=== PATIENT | male | born 1995 | race Caucasian/White ===

== ENCOUNTER 2022-03-10 09:29 | Emergency (ER) | payer OTHER, SELFPAY ==
[2022-03-10 09:38] VITALS: BP 103/50; BP 144/94; PULSE 57; PULSE 74; RESP 14; TEMP 36.8; O2SAT 100; O2SAT 96; BMI 23.6
--- NOTE | 2022-03-10 10:19 | ED_ITS ---
HPI - General Adult General Chief complaint: General Medical Stated complaint: DIFF AMB D/T B[facility]OP LEG PAIN PER EMS Time Seen by Provider: 03/10/22 09:44 Source: patient Mode of arrival: ambulatory History of Present Illness HPI narrative: 26-year-old male with a past medical history of substance abuse presenting to the ED via EMS complaining of bilateral foot pain and swelling for unknown amount of time. Patient states he is currently homeless and does not have any shoes, called EMS as could not walk anymore secondary to pain. Reports intermittent numbness/tingling. Admits to using heroin last night, denies any drug or ETOH use today. Denies injecting in his feet. Denies fever, direct injury/trauma or fall. Denies SI/HI Onset (ago): unknown Related Data Previous Rx's Medication Instructions Recorded cephalexin 500 mg capsule 500 mg PO QID 7 days #28 caps 03/10/22 Allergies Allergy/AdvReac Type Severity Reaction Status Date / Time No Known Allergies Allergy Verified 03/10/22 09:58 Review of Systems Review of Systems: Constitutional: No Fever, No Chills ENT/Mouth: No Ear Pain, No Nasal Congestion, No sore throat, No Rhinorrhea, No Swallowing Difficulty Cardiovascular: No Chest Pain, No SOB Respiratory: No Cough, No Sputum Gastrointestinal: No Nausea, No Vomiting, No Diarrhea, No Constipation, No Abdominal pain Genitourinary: No Dysuria, No Urinary Frequency, No Flank Pain Musculoskeletal: + joint pain, No Myalgias, + Joint Swelling Skin: + Skin Lesions, No rash Neuro: No Weakness, + Numbness, + Paresthesias Yes all other systems are reviewed and are negative Constitutional: Constitutional: Reports as per [facility] Past Medical History Attestation statement: The following information was validated with the patient. Social History Social History Advance Directives: No Advance Directives Information Provided: Yes Physical Exam ED Vital Signs: Vital Signs - 24 hr 03/10/22 09:38 03/10/22 10:51 03/10/22 11:41 Temperature 98.3 F 97.5 F Pulse Rate 57 63 46 L Respiratory Rate 14 17 11 L Blood Pressure 103/50 L 111/60 Pulse Oximetry 100 99 100 Oxygen Delivery Method Room Air Room Air Room Air 03/10/22 13:58 Temperature 98.3 F Pulse Rate 59 Respiratory Rate 22 H Blood Pressure 106/70 Pulse Oximetry 94 Oxygen Delivery Method Room Air BMI result Body Mass Index 23.6 Const Other: Lethargic, appears under the influence, arousable with voice/touch General: no acute distress and poor hygiene; No acute distress Limitations: no limitations HENMT Head: Yes normal to inspection and Yes atraumatic Ears: hearing grossly normal bilaterally General nose exam: Normal external nose present Face and sinus: Yes normal facial exam Eyes General: appearance normal, both eyes and all related structures Pupils: Equal, round and reactive pupils present EOM: EOMs intact bilaterally Neck Neck: Yes normal visual inspection and Yes no meningeal signs Resp Effort & Inspection: normal respiratory effort and no respiratory distress Auscultation: clear to auscultation bilaterally Cardio Rate: regular rate Heart sounds: S1 normal heart sound present and S2 normal heart sound present GI Inspection: Yes normal to inspection Palpation (GI): Soft to palpation, nontender and no guarding Neuro General: tone normal, moves all extremities and no meningeal signs Cranial nerves: Yes Equal, round and reactive pupils present Gait exam (Neuro): Normal gait present Extrem Other: Bilateral feet with mild swelling, small abrasions/skin avulsions noted with mild surrounding erythema. Mild swelling/erythema noted to plantar aspect. No streaking, No fluctuance/induration or pointing. Neurovascularly intact. Sensation intact to light touch. Full range of motion intact Course Course Course Narrative: -labs unremarkable. Ethanol negative -1250-patient sleeping comfortably, easily arousable to voice. Has been tolera ting p.o. yudelka dottie -1440--patient is still very lethargic however arousable to voice -patient denies SI/HI. Has no interest in detox -tox screen positive for fentanyl/cocaine -1645-- Patient awake to voice, has been tolerating p.o., will discharge with Narcan to go. Plan to d/c with Keflex. Had no interest in homeless shelters/other resources Medical Decision Making [facility] Narrative Medical decision making narrative: 26-year-old male with a past medical history of substance abuse presenting to the ED via EMS complaining of bilateral foot pain and swelling for unknown amount of time. On exam vital signs stable, NAD, lethargic/appears under the influence. PE as above. Concern for overuse/pressure wounds due to homelessness vs early cellulitis. No evidence of abscess. Low suspicion for septic joint/arthritis Plan: Labs, drug screen, p.o. antibiotics Medical Records Medical records reviewed: Yes I reviewed the patient's medical records. Lab Data Lab results reviewed: Yes I reviewed the patient's lab results. Result diagrams: 03/10/22 10:48 03/10/22 10:48 Labs: Lab Results 03/10/22 03/10/22 03/10/22 Range/Units 10:48 10:48 11:59 WBC 6.0 (4.8-10.8) X10*3/uL RBC 3.93 L (4.60-5.80) X10*6/uL Hgb 10.9 L (14.0-18.0) g/dl Hct 32.2 L (42.0-52.0) % MCV 81.9 (80.0-98.0) fL MCH 27.7 (27.0-33.0) pg MCHC 33.9 (31.0-36.0) g/dl RDW 13.1 (11.0-16.0) % Plt Count 183 (160-400) X10*3/uL MPV 9.5 (9.4-12.4) fL Immature Gran % (Auto) 0.3 (0.0-0.4) % Neut % (Auto) 70.6 (45-73) % Lymph % (Auto) 17.9 L (20-40) % Nelson % (Auto) 9.2 (2-11) % Eos % (Auto) 1.7 (0-4) % Baso % (Auto) 0.3 (0-2) % Lymph # (Auto) 1.1 L (1.2-4.9) X10*3/uL Nelson # (Auto) 0.6 (0.1-1.2) X10*3/uL Eos # (Auto) 0.1 (0.0-0.4) X10*3/uL Baso # (Auto) 0.0 (0.0-0.2) X10*3/uL Abs Immat Gran (auto) 0.02 (0.00-0.03) X10*3/uL Absolute Neuts (auto) 4.2 (2.0-8.3) x10*3/uL Absolute Nucleated RBC 0.000 (0.0-0.012) X10*3/uL Nucleated RBC % (auto) 0.0 (0.0-0.2) /100WBC Sodium 139 (135-145) mmol/L Potassium 4.3 (3.3-5.1) mmol/L Chloride 102 (96-108) mmol/L Carbon Dioxide 29 (22-29) mmol/L Anion Gap 12 (12-20) BUN 12 (9-16) mg/dL Creatinine 0.84 (0.5-1.4) mg/dL Estim Creat Clear Calc 135.1 Estimated GFR > 60 Random Glucose 115 (60-115) mg/dL Calcium 8.7 (8.4-10.2) mg/dL B-Natriuretic Peptide < 10 (<100) pg/mL Urine Color Urine Appearance Urine pH (5.0-9.0) Ur Specific [place] (1.005-1.025) Urine Protein (Neg-Trace) mg/dL Urine Glucose (UA) (Negative) mg/dL Urine Ketones (Negative) mg/dL Urine Blood (Negative) Urine Nitrite (Negative) Ur Leukocyte Esterase (Negative) Urine Opiates Screen (Not Detect) Urine Fentanyl Screen (Not Detect) Ur Barbiturates Screen (Not Detect) Ur Phencyclidine Scrn (Not Detect) Ur Amphetamines Screen (Not Detect) U Benzodiazepines Scrn (Not Detect) Urine Cocaine Screen (Not Detect) U Marijuana (THC) Screen (Not Detect) Ethyl Alcohol < 10 mg/dL 03/10/22 03/10/22 Range/Units 16:10 16:19 WBC (4.8-10.8) X10*3/uL RBC (4.60-5.80) X10*6/uL Hgb (14.0-18.0) g/dl Hct (42.0-52.0) % MCV (80.0-98.0) fL MCH (27.0-33.0) pg MCHC (31.0-36.0) g/dl RDW (11.0-16.0) % Plt Count (160-400) X10*3/uL MPV (9.4-12.4) fL Immature Gran % (Auto) (0.0-0.4) % Neut % (Auto) (45-73) % Lymph % (Auto) (20-40) % Nelson % (Auto) (2-11) % Eos % (Auto) (0-4) % Baso % (Auto) (0-2) % Lymph # (Auto) (1.2-4.9) X10*3/uL Nelson # (Auto) (0.1-1.2) X10*3/uL Eos # (Auto) (0.0-0.4) X10*3/uL Baso # (Auto) (0.0-0.2) X10*3/uL Abs Immat Gran (auto) (0.00-0.03) X10*3/uL Absolute Neuts (auto) (2.0-8.3) x10*3/uL Absolute Nucleated RBC (0.0-0.012) X10*3/uL Nucleated RBC % (auto) (0.0-0.2) /100WBC Sodium (135-145) mmol/L Potassium (3.3-5.1) mmol/L Chloride (96-108) mmol/L Carbon Dioxide (22-29) mmol/L Anion Gap (12-20) BUN (9-16) mg/dL Creatinine (0.5-1.4) mg/dL Estim Creat Clear Calc Estimated GFR Random Glucose (60-115) mg/dL Calcium (8.4-10.2) mg/dL B-Natriuretic Peptide (<100) pg/mL Urine Color Yellow Urine Appearance Cloudy Urine pH 7.0 (5.0-9.0) Ur Specific [place] 1.015 (1.005-1.025) Urine Protein Negative (Neg-Trace) mg/dL Urine Glucose (UA) Negative (Negative) mg/dL Urine Ketones Negative (Negative) mg/dL Urine Blood Negative (Negative) Urine Nitrite Negative (Negative) Ur Leukocyte Esterase Negative (Negative) Urine Opiates Screen Not Detected (Not Detect) Urine Fentanyl Screen POSITIVE H (Not Detect) Ur Barbiturates Screen Not Detected (Not Detect) Ur Phencyclidine Scrn Not Detected (Not Detect) Ur Amphetamines Screen Not Detected (Not Detect) U Benzodiazepines Scrn Not Detected (Not Detect) Urine Cocaine Screen POSITIVE H (Not Detect) U Marijuana (THC) Screen Not Detected (Not Detect) Ethyl Alcohol mg/dL Discharge Plan Discharge Clinical Impression: Active substance abuse, Cellulitis Patient Disposition: Home, Self-Care Instructions: Cellulitis (ED), Polysubstance Abuse (ED) Additional Instructions: Your blood work was reassuring. Keflex is an antibiotics please take as prescribed. If symptoms persist or worsen, swelling or erythema spreads/worsens, or pain becomes unbearable return to the emergency department Return to this ED as needed Prescriptions: New cephalexin 500 mg capsule 500 mg PO QID 7 Days Qty: 28 0RF Referrals: [facility] [Provider Group]
[2022-03-10 10:51] VITALS: PULSE 63; RESP 17; O2SAT 99
[2022-03-10 10:55] LABS: MANUAL DIFF FLAG NO
[2022-03-10 10:59] LABS: Basophils Percent Auto 0.3 % (0-2); Eosinophils Absolute Auto 0.1 X10*3/uL (0.0-0.4); Eosinophils Percent Auto 1.7 % (0-4); Hematocrit 32.2 % (42.0-52.0); Hemoglobin 10.9 g/dl (14.0-18.0); Imm Gran Abs Auto 0.02 X10*3/uL (0.00-0.03); Imm Gran Pct Auto 0.3 % (0.0-0.4); Lymphocytes Absolute Auto 1.1 X10*3/uL (1.2-4.9); Lymphocytes Percent Auto 17.9 % (20-40); Mean Corpuscular HGB Conc 33.9 g/dl (31.0-36.0); Mean Corpuscular Hemoglobin 27.7 pg (27.0-33.0); Mean Corpuscular Volume 81.9 fL (80.0-98.0); Mean Platelet Volume 9.5 fL (9.4-12.4); Monocytes Absolute Auto 0.6 X10*3/uL (0.1-1.2); Monocytes Percent Auto 9.2 % (2-11); Neutrophils Absolute Auto 4.2 x10*3/uL (2.0-8.3); Neutrophils Percent Auto 70.6 % (45-73); Platelet Count 183 X10*3/uL (160-400); Red Blood Count 3.93 X10*6/uL (4.60-5.80); Red Cell Distribution Width 13.1 % (11.0-16.0)
[2022-03-10 11:10] LABS: Anion Gap 12 (12-20); Blood Urea Nitrogen 12 mg/dL (9-16); Calcium 8.7 mg/dL (8.4-10.2); Carbon Dioxide 29 mmol/L (22-29); Chloride 102 mmol/L (96-108); Creatinine Clr Calc Pharmacy 135.1; Estimated Glomerular Filt Rate > 60; Ethanol < 10 mg/dL; Glucose Random 115 mg/dL (60-115); Potassium 4.3 mmol/L (3.3-5.1); Sodium 139 mmol/L (135-145)
[2022-03-10 11:41] VITALS: BP 111/60; PULSE 46; RESP 11; TEMP 36.4; O2SAT 100
[2022-03-10 12:34] LABS: B Type Natriuretic Peptide < 10 pg/mL (<100)
[2022-03-10 13:58] VITALS: BP 106/70; PULSE 59; RESP 22; TEMP 36.8; O2SAT 94
--- NOTE | 2022-03-10 15:21 | PC.NURSE ---
pt approached multiple times for ua spec, pt continues to state i really cant go, im trying . pt requires frequent redirection to stay awake in conversation, lethargic, vss.
[2022-03-10 16:28] LABS: Appearance Urine Cloudy; Color Urine Yellow; Glucose Urine UA Negative (Negative); Leukocyte Esterase Urine Negative (Negative); Nitrite Urine Negative (Negative); Specific Gravity - Urine 1.015 (1.005-1.025); Urine Blood Negative (Negative); Urine Ketones Negative (Negative); Urine Protein Negative (Neg-Trace)
[2022-03-10 16:35] LABS: Amphetamine Screen Urine Not Detected (Not Detect); Barbiturates, Urine Not Detected (Not Detect); Benzodiazepines Screen Urine Not Detected (Not Detect); Cannabinoid Screen Urine Not Detected (Not Detect); Cocaine Screen Urine POSITIVE (Not Detect); Fentanyl, urine POSITIVE (Not Detect); Opiate Screen Urine Not Detected (Not Detect); Phencyclidine Screen Urine Not Detected (Not Detect)
[2022-03-10] MEDS: cephALEXin 500 MG CAPSULE PO (17:33)
== END 2022-03-10 17:51 | disposition home or self-care (01) ==
PROVIDERS: Physician Assistant; Emergency Provider Emergency Medicine
DX: F19.10 Other psychoactive substance abuse, uncomplicated (principal); L03.116 Cellulitis of left lower limb; L03.115 Cellulitis of right lower limb; M79.672 Pain in left foot; M79.671 Pain in right foot
CPT/HCPCS: 36415; 80048; 80307; 81003; 82077; 83880; 85025; 99283; 99284

== ENCOUNTER 2022-03-28 06:02 | Emergency (ER) | payer OTHER, SELFPAY ==
[2022-03-28] VITALS (8 sets, daily range): BP systolic 105–140; BP diastolic 57–90; PULSE 46–77; RESP 9–16; TEMP 36.4–37.2; O2SAT 92–100; BMI 25.0
--- NOTE | ~2022-03-28 | XR_ITS ---
EXAMINATION: XR FOOT, LEFT CLINICAL INFORMATION: Third toe infection COMPARISON: None TECHNIQUE: AP, lateral, and oblique views of the left foot. FINDINGS: Bone alignment is normal. No fracture or dislocation is seen. No x-ray evidence of osteomyelitis. There appears to be soft tissue swelling of the distal third toe. No abnormal air collection or soft tissue foreign body is seen. XR/XR foot LT min 3V IMPRESSION: Soft tissue swelling of the distal third toe. No fracture or foreign body.
--- NOTE | 2022-03-28 06:50 | PC.NURSE ---
This RN attemping to get through admission questions with pt. Pt. keeps nodding off, then yelling at this RN and becoming agitated
[2022-03-28 06:51] LABS: Glucose, Whole Blood 119 mg/dL (60-115)
--- NOTE | 2022-03-28 08:04 | PC.NURSE ---
patient is to arousal when spoken to . patient reports all of a sudden feeling 10/10 pain in that toe in middle of the night taking his sock off and seeing his toe looking like that . Avulsion to third toe noted on right foot , patient tolerated this RN cleaning area with normal saline small amount of white drainage noted around area . Xray done at bed side . Patient put on monitor . Patient refused to change into gown . Patient keeps falling asleep , he contributs that to being homless denies substance use at this time . Refuses any other assessments at this time . patient aware of plan of care .
--- NOTE | 2022-03-28 12:00 | PC.NURSE ---
Sliver ag dressing cut to size and applied to wound bed. Pt educated on woundcare follow up/dressing changes and antibiotic managment. Sleepy, but easily awaken to voice.
--- NOTE | 2022-03-28 12:40 | ED.LOWEXIN ---
HPI - Extremity Injury (Lower) General Chief Complaint: Extremity Injury, Lower Stated Complaint: toe pain Time Seen by Provider: 03/28/22 07:07 Source: patient Mode of arrival: ambulatory Limitations: no limitations History of Present Illness HPI Narrative: 26-year-old male came in for evaluation of left 3rd toe infection. Patient is homeless, started as a blister on left 3rd toe now is getting bigger and more tender with swelling of the toe. No fever, no chills. Related Data Previous Rx's Medication Instructions Recorded cephalexin 500 mg capsule 500 mg PO QID 7 days #28 caps 03/10/22 cephalexin 500 mg capsule 500 mg PO BID 10 days #20 caps 03/28/22 Allergies Allergy/AdvReac Type Severity Reaction Status Date / Time No Known Allergies Allergy Verified 03/10/22 09:58 Review of Systems Review of Systems: All other systems are reviewed and are negative Constitutional: Reports as per HPI and Reports no additional constitutional complaints Eyes: Reports as per HPI and Reports no additional eye complaints Reports system reviewed and no additional complaints, except as documented Cardiovascular: Reports as per HPI and Reports no additional cardiovascular complaints Respiratory: Reports as per HPI and Reports no additional respiratory complaints Gastrointestinal: Reports as per HPI and Reports no additional gastrointestinal complaints Genitourinary: Reports no additional female genitourinary complaints Musculoskeletal: Reports no additional musculoskeletal complaints Skin/Breast: Reports system reviewed and no additional complaints, except as docu Psychiatric: Reports no additional psychiatric complaints Endocrine: Reports no additional endocrine complaints Hematologic/Lymphatic: Reports no additional hematologic/lymphatic complaints Allergic/Immunologic: Reports no additional allergic/immunologic complaints Reports system reviewed and no additional complaints, except as documented and Reports Abnormal speech present [facility] Social History Social History Alcohol intake: current Patient Tobacco Use Status: Current everyday Tobacco user Physical Exam Vital Signs: Vital Signs: Last Vital Signs Temp 98.7 F 03/28/22 12:15 Pulse 46 L 03/28/22 12:15 Resp 13 03/28/22 12:15 BP 121/77 03/28/22 12:15 Pulse Ox 100 03/28/22 12:15 O2 Del Method 03/28/22 12:15 BMI result Body Mass Index 25.0 Vital signs have been reviewed as appeared to be correct. Blood pressure normal. Heart rate normal. Respiration rate normal. Temperature normal. Oxygen saturation normal. Appearance: Alert. Oriented X3. No acute distress. Head: Normal external exam. Normocephalic. Atraumatic. No Hurley signs noted. No raccoon eyes noted Eyes: PERRLA. EOMI. Conjunctiva and sclera normal. Eyelids normal. ENT: TM's Normal. Pharynx normal. Uvula midline. Moist mucous membranes. No trismus noted. No drooling noted. No muffled voice noted. Neck: Normal inspection. Neck supple. FROM. No adenopathy. Thyroid Normal. No meningeal signs. No neck mass noted. CVS: Normal heart rate and rhythm. Heart sound normal. No murmurs noted. Pulses normal throughout. Respiratory: No respiratory distress. Painless inspiration. Breath sounds normal. No wheezes/rales/rhonchi noted. Chest nontender. No accessory muscle usage noted or decreased air movement noted. Abdomen: Soft and nontender. Bowel sounds normal in all 4 quadrants. No distention noted. No organomegaly noted. No visible injury noted. Back: No CVA tenderness. Full range of motion noted. Skin: Skin warm and dry. Normal skin color. Normal skin turgor. No rashes/lesions/lacerations noted. Extremities: Left 3rd toe swelling and sensitive to touch. Granulation tissue on dorsum aspect of the 3rd toe. No pus, no fluctuation. Neuro: Oriented X 3. Cranial nerve exam: II-XII are grossly intact No motor deficit. No sensory deficit. Reflexes normal. Course Course Course Narrative: Infected left 3rd toe the case discussed with Dr. Rodriguez if the patient need debridement but patient is okay without debridement start on silver alginate dressing and antibiotic and follow-up with them as an outpatient. MDM - Extremity Injury (Lower) Medical Records Attestation: I reviewed the patient's medical records. Lab Data Attestation: I reviewed the patient's lab results. Labs: Lab Results 03/28/22 Range/Units 06:47 POC Glucose 119 H (60-115) mg/dL Imaging Data Left foot x-ray: Attestation: I personally reviewed and interpreted this imaging study as follows: Radiologist's impression: Soft tissue swelling of the distal third toe. No fracture or foreign body. Discharge Plan Discharge Clinical Impression: Blister of third toe, left, infected Patient Disposition: Home, Self-Care Instructions: Cellulitis (ED) Prescriptions: New cephalexin 500 mg capsule 500 mg PO BID 10 Days Qty: 20 0RF No Action cephalexin 500 mg capsule 500 mg PO QID 7 Days Qty: 28 0RF Referrals: Jono Rodriguez MD [Physician] -
--- OUTSIDE RECORDS SUMMARY | 2022-03-28 13:16 | XMS_ITS | Continuity of Care Document ---
:1995 Author Organization [facility] Address [address] [place] [address]- Care Team Providers Name Role Phone Baron Clemente MD Primary Care Physician Encounter [facility] Date(s): 10/12/19 - 10/12/[address] [address]- [facility] Discharge Disposition: A-D/C Home Attending Physician: Vincenzo Epps MD Admitting Physician: Vincenzo Epps MD Referring Physician: Not on Staff, Referring MD Allergies, Adverse Reactions, Alerts Substance Reaction Severity Status NKA Active Immunizations Given and Recorded Vaccine Date Status Refusal Reason tetanus/diphtheria/pertussis, acel(Tdap) 10/12/19 Given Medications Gabapentin By Mouth, 0 Refills, Maintenance, 05/16/19 18:06:18 EST Start Date: 05/16/19 Status: OrderedMeclizine By Mouth, 3 times a day, 0 Refills, Maintenance, 09/04/17 15:32:29 Start Date: 09/04/17 Status: OrderedWellbutrin = 150 mg, By Mouth, 2 times a day, 0 Refills, Maintenance, 10/12/19 18:14:00 EDT Start Date: 10/12/19 Status: Ordered Vital Signs Most recent to oldest [Reference Range]: 1 Height 178 cm (10/12/19 6:14 PM) Weight 85.0 kg (10/12/19 6:14 PM) Oxygen Saturation [94-100 %] 99 % (10/12/19 6:14 PM) Pulse Rate [55-90 bpm] 82 bpm (10/12/19 6:14 PM) Blood Pressure [90-138/55-84 mm Hg] 145/89 mm Hg *H* (10/12/19 6:14 PM) Respiratory Rate [16-30 br/min] 16 br/min (10/12/19 6:14 PM) Temperature [96.8-100.4 DegF] 98.2 DegF (10/12/19 6:14 PM) Mode of Delivery (Oxygen) Room air (10/12/19 6:14 PM) Dry Weight 85.0 kg (10/12/19 6:14 PM) Weight Obtained Via Standing scale (10/12/19 6:14 PM) Dry Weight Obtained Via Standing scale (10/12/19 6:14 PM) Social History Social History Type Response Smoking Status 10 or more cigarettes (1/2 p ack or more)/day in last 30 days entered on: 08/03/19 Sex
--- OUTSIDE RECORDS SUMMARY | 2022-03-28 13:16 | XMS_ITS | Continuity of Care Document ---
:1995 Author Organization [facility] Address [address] [place] [address]- Care Team Providers Name Role Phone Baron Clemente MD Primary Care Physician Encounter [facility] Date(s): 08/03/19 - 08/03/[address] [address]- [facility] Discharge Disposition: A-D/C Home Attending Physician: Jono Cid MD Admitting Physician: Jono Cid MD Referring Physician: Not on Staff, Referring MD Allergies, Adverse Reactions, Alerts Substance Reaction Severity Status NKA Active Medications Gabapentin By Mouth, 0 Refills, Maintenance, 05/16/19 18:06:18 EST Start Date: 05/16/19 Status: OrderedMeclizine By Mouth, 3 times a day, 0 Refills, Maintenance, 09/04/17 15:32:29 Start Date: 09/04/17 Status: Ordered Vital Signs Most recent to oldest [Reference Range]: 1 Height 178 cm (08/03/19 2:47 PM) Weight 92.4 kg (08/03/19 2:47 PM) Oxygen Saturation [94-100 %] 100 % (08/03/19 2:47 PM) Pulse Rate [55-90 bpm] 73 bpm (08/03/19 2:47 PM) Blood Pressure [90-138/55-84 mm Hg] 147/81 mm Hg *H* (08/03/19 2:47 PM) Respiratory Rate [16-30 br/min] 16 br/min (08/03/19 2:47 PM) Temperature [96.8-100.4 DegF] 98.4 DegF (08/03/19 2:47 PM) Mode of Delivery (Oxygen) Room air (08/03/19 2:47 PM) Dry Weight 92.4 kg (08/03/19 2:47 PM) Weight Obtained Via Standing scale (08/03/19 2:47 PM) Dry Weight Obtained Via Standing scale (08/03/19 2:47 PM) Social History Social History Type Response Smoking Status 10 or more cigarettes (1/2 p ack or more)/day in last 30 days entered on: 08/03/19 Sex
[2022-03-28] MEDS: cephALEXin 500 MG CAPSULE PO (14:24)
--- NOTE | 2022-03-28 14:38 | PC.NURSE ---
pt is giving lunch ate 100%. amb (i) gait steady to bathroom.
== END 2022-03-28 15:07 | disposition home or self-care (01) ==
PROVIDERS: Emergency Provider Emergency Medicine
DX: L03.032 Cellulitis of left toe (principal); S90.425A Blister (nonthermal), left lesser toe(s), initial encounter; X58.XXXA Exposure to other specified factors, initial encounter; Y93.01 Activity, walking, marching and hiking; Y92.480 Sidewalk as the place of occurrence of the external cause; Y99.9 Unspecified external cause status; F17.200 Nicotine dependence, unspecified, uncomplicated; Z59.00 Homelessness unspecified
CPT/HCPCS: 73630; 82947; 99283; 99284

== ENCOUNTER 2022-12-10 12:21 | Emergency (ER) | payer OTHER, SELFPAY ==
--- NOTE | 2022-12-10 | ECG_ITS ---
Test Reason : cocaine use Blood Pressure : / mmHG Vent. Rate : 059 BPM Atrial Rate : 059 BPM P-R Int : 132 ms QRS Dur : 116 ms QT Int : 442 ms P-R-T Axes : 056 080 050 degrees QTc Int : 437 ms Sinus bradycardia with sinus arrhythmia Otherwise normal ECG No previous ECGs available Referred By: Generic ED Physician Electronically Signed By:FREDERICK NERI MD
[2022-12-10 12:28] VITALS: BP 136/92; BP 141/88; PULSE 62; PULSE 75; RESP 18; TEMP 37.1; O2SAT 98; O2SAT 99; BMI 23.0
[2022-12-10 12:50] LABS: Appearance Urine Turbid; Color Urine Yellow; Glucose Urine UA Negative (Negative); Leukocyte Esterase Urine Negative (Negative); Nitrite Urine Negative (Negative); PH 8.5 (5.0-9.0); Urine Blood Negative (Negative); Urine Ketones Trace mg/dL (Negative); Urine Protein Negative (Neg-Trace)
[2022-12-10 13:00] LABS: Amphetamine Screen Urine Not Detected (Not Detect); Barbiturates, Urine Not Detected (Not Detect); Benzodiazepines Screen Urine Not Detected (Not Detect); Cannabinoid Screen Urine Not Detected (Not Detect); Cocaine Screen Urine POSITIVE (Not Detect); Fentanyl, urine POSITIVE (Not Detect); Opiate Screen Urine POSITIVE (Not Detect); Phencyclidine Screen Urine Not Detected (Not Detect)
[2022-12-10 13:16] LABS: COVID-19 Test Negative (Negative); IDNOW Serial# BCCEAD1C
--- NOTE | 2022-12-10 13:30 | ED_ITS ---
HPI - Psych General Chief Complaint: ETOH/Substance Use Stated Complaint: feels like he's withdrawing from substances vss Time Seen by Provider: 12/10/22 13:29 Source: patient and EMS Mode of arrival: EMS Limitations: no limitations History of Present Illness HPI Narrative: 26 yo male with history of IV heroin and IV cocaine use presents to the ER from court via EMS for evaluation of opiate withdrawal symptoms. He states he last injected 1.5 days ago. He states his withdrawal symptoms include nausea, vomiting, diarrhea, abdominal cramping, headaches, sweating, runny nose. He states he has all-over body pain. He states he has been on methadone in the past and would like to get started on methadone today. He denies any suicidal thoughts. He is homeless. complaint: substance abuse Duration: constant History of same: Yes Relieving factors: none Exacerbating factors: none Context: recent drug abuse Associated psychiatric symptoms: none Associated symptoms: nausea, vomiting and insomnia Treatments prior to arrival: none Related Data Previous Rx's Medication Instructions Recorded cephalexin 500 mg capsule 500 mg PO QID 7 days #28 caps 03/10/22 cephalexin 500 mg capsule 500 mg PO BID 10 days #20 caps 03/28/22 Allergies Allergy/AdvReac Type Severity Reaction Status Date / Time No Known Allergies Allergy Verified 03/10/22 09:58 Review of Systems Review of Systems: Yes all other systems are reviewed and are negative [facility] Social History Social History Alcohol intake: former Patient Tobacco Use Status: Current everyday Tobacco user Smoked in Last 30 Days: Yes Use of substances other than those prescribed or required for medical reasons: Yes Substance Use Type: Crack/Cocaine and Heroin Advance Directives: No Advance Directives Information Provided: Yes Physical Exam Vital Signs: Vital Signs: Last Vital Signs Temp 98.8 F 12/10/22 12:28 Pulse 75 12/10/22 12:28 Resp 18 12/10/22 12:28 BP 141/88 H 12/10/22 12:28 Pulse Ox 99 12/10/22 12:28 O2 Del Method Room Air 12/10/22 12:28 BMI result Body Mass Index 23.0 Appearance: Alert. Oriented X3. No acute distress. Head: normocephalic, atraumatic. Eyes: Pupils equal, round and reactive to light. ENT: Abrasion to the upper bridge of the nose. Pharynx normal. No tonsillar swelling or exudate. Neck: Normal inspection. Neck supple. CVS: Normal heart rate and rhythm. Pulses normal. Respiratory: No respiratory distress. Breath sounds normal. Abdomen: Soft and nontender. +BS x4 Skin: Skin warm and dry. Normal skin color. Normal skin turgor. No rashes. Extremities: No lower extremity edema. No joint swelling. Track valencia of the bilateral forearms without any evidence of cellulitis or abscesses. Neuro/psych: Oriented X 3. No motor deficit. No sensory deficit. CN II-XII intact. Normal speech and cognition. Normal thought process, no suicidal thoughts, no auditory or visual hallucinations. Medications Administered Discontinued Medications Generic Name Dose Route Start Last Admin Trade Name Freq PRN Reason Stop Dose Admin Methadone HCl 30 mg 12/10/22 13:30 12/10/22 14:09 Methadone Hcl 20 Mg/2 Ml Oral.Conc PO 12/10/22 13:31 30 mg ONCE ONE Administration Medical Decision Making Medical Decision Making [facility] Narrative: 18-year-old male with a history of polysubstance abuse presents to the ER for evaluation of opiate withdrawal. COLE Iyer Rabia from [facility] met with the patient - will plan to start methadone today 30mg. QTC is within normal limits today. he will follow up with [facility] for further dosing, information sent. Patient agrees w/ plan and is stable for d/c. Differential Diagnosis Differential Diagnoses: The differential diagnosis associated with the presentation includes Polysubstance abuse, opiate withdrawal, alcohol withdrawal Lab Data [facility] Lab Attestation statement: I reviewed the patient's lab results. Labs: Lab Results 12/10/22 12/10/22 12/10/22 Range/Units 12:39 12:39 12:39 Urine Color Yellow Urine Appearance Turbid Urine pH 8.5 (5.0-9.0) Ur Specific Evans 1.020 (1.005-1.025) Urine Protein Negative (Neg-Trace) mg/dL Urine Glucose (UA) Negative (Negative) mg/dL Urine Ketones Trace (Negative) mg/dL Urine Blood Negative (Negative) Urine Nitrite Negative (Negative) Ur Leukocyte Esterase Negative (Negative) Urine Opiates Screen POSITIVE H (Not Detect) Urine Fentanyl Screen POSITIVE H (Not Detect) Ur Barbiturates Screen Not Detected (Not Detect) Ur Phencyclidine Scrn Not Detected (Not Detect) Ur Amphetamines Screen Not Detected (Not Detect) U Benzodiazepines Scrn Not Detected (Not Detect) Urine Cocaine Screen POSITIVE H (Not Detect) U Marijuana (THC) Screen Not Detected (Not Detect) COVID-19 (SELENE) Negative (Negative) COVID-19 Clin Com See Note Independent Interpretation I performed an independent interpretation of an: EKG Interpretation: EKG with sinus bradycardia, sinus arrhythmia, ventricular rate 59 beats per minute, normal TN interval, normal QTC 437. Independent Historian Clinical information obtained from an independent historian. History obtained from or confirmed by: EMS External Record Review External record reviewed: Outpatient record and Prior outpatient labs Prescription Management I considered prescription management with: Other (methadone) Chronic Conditions Patient?s care impacted by: Other (Polysubstance abuse) Social Determinants Patient?s care significantly limited by Social Determinants of Health including: Inadequate housing, Alcoholism and drug addiction in family, Problems related to primary support group and Other Social Determinant of Health Critical Care Time Critical Care Time Critical Care Time: No Discharge Plan Discharge Clinical Impression: Polysubstance abuse Patient Disposition: Home, Self-Care Instructions: Polysubstance Abuse (ED) Additional Instructions: Your given 30 mg of methadone today, 12/10. Recommend following up with [facility] clinic tomorrow for ongoing dosing. Do not used heroin, it can kill you Prescriptions: No Action cephalexin 500 mg capsule 500 mg PO QID 7 Days Qty: 28 0RF cephalexin 500 mg capsule 500 mg PO BID 10 Days Qty: 20 0RF
--- NOTE | 2022-12-10 13:42 | MHC.RECOVRN ---
Met with pt in [facility] after pt presented to [facility] with opioid withdrawal symptoms. Pt laying in bed, awake, diaphoretic, restless. Pt reports body aches, hot/cold flashes. Pt reports using heroin, approx 2 bundles daily, IV as well as cocaine, 1 gram daily, IV, last use approx 36 hours ago. Pt reports hx methadone, most recently 80 mg daily at [facility] a few months ago. Pt reports having been on methadone for years and just stopped going. Pt is interested in restarting methadone and following up with [facility]. Discussed with ED provider, plan to administer 30 mg methadone and present to [facility] tomorrow. Referral sent to [facility].
[2022-12-10] MEDS: methADONE HCl 20 MG/2 ML ORAL.CONC 30 MG PO (14:09)
== END 2022-12-10 14:53 | disposition home or self-care (01) ==
PROVIDERS: Emergency Provider Emergency Medicine
DX: F14.13 Cocaine abuse, unspecified with withdrawal (principal); R00.1 Bradycardia, unspecified; Z20.822 Contact with and (suspected) exposure to COVID-19; Z20.828 Contact with and (suspected) exposure to other viral communicable diseases; Z79.899 Other long term (current) drug therapy
CPT/HCPCS: 80307; 81003; 87635; 93005; 99284; 99285

== ENCOUNTER 2023-06-28 21:51 | Emergency (ER) | payer OTHER, SELFPAY ==
--- NOTE | ~2023-06-28 | XR_ITS ---
EXAMINATION: XR ELBOW, RIGHT CLINICAL INFORMATION: Possible retained needle. COMPARISON: None available. TECHNIQUE: AP, lateral, and oblique views of the right elbow. FINDINGS: Needle-shaped foreign body projecting over the ventral soft tissues of the mid forearm on the lateral view. No fracture. Anatomic alignment. No joint effusion. XR/XR elbow RT min 3V IMPRESSION: 1. Needle-shaped foreign body projecting over the ventral soft tissues of the mid forearm on the lateral view. 2. No acute osseous findings.
[2023-06-28 22:12] VITALS: BP 119/59; PULSE 85; RESP 18; TEMP 36.8; O2SAT 99; BMI 22.5
--- NOTE | 2023-06-29 01:03 | ED.GENADULT ---
HPI - General Adult General Chief complaint: General Medical Stated complaint: needle broke in left arm/he doesn't feel right Time Seen by Provider: 06/29/23 01:02 Source: patient Mode of arrival: ambulatory Limitations: no limitations History of Present Illness HPI narrative: Patient is a 27 year old assigned male at with a history of IV drug use presenting to the emergency department today with a needle broken in his right arm. Patient states that a week and a half ago he broke a needle in his right arm and has not been able to remove it. Patient denies any dizziness, lightheadedness, abdominal pain, nausea, vomiting, fever, chills, blurry vision, double vision, loss of vision, chest pain, difficulty breathing, shortness of breath, back pain, night sweats, pain with urination, increased urinary frequency, increased urinary urgency, blood in his urine or stool, syncope or a near syncopal episode, recent trauma or falls, bowel incontinence, bladder incontinence, bowel retention, bladder retention, or any other complaints at this time. Onset (ago): week(s) (1.5) Location: right and upper extremity Severity: mild Severity scale (1-10): 3 Relieving factors: none Exacerbating factors: none Associated symptoms: denies other symptoms Treatments prior to arrival: none Related Data Previous Rx's Medication Instructions Recorded cephalexin 500 mg capsule 500 mg PO QID 7 days #28 caps 03/10/22 cephalexin 500 mg capsule 500 mg PO BID 10 days #20 caps 03/28/22 Allergies Allergy/AdvReac Type Severity Reaction Status Date / Time trazodone Allergy Palpitation Verified 06/28/23 22:20 s Review of Systems Constitutional: Constitutional: Reports no additional constitutional complaints, Denies chills, Denies fever(s) and Denies night sweats Eyes: Eyes: Reports no additional eye complaints, Denies blurry vision, Denies change in vision, Denies diplopia, Denies eye discharge, Denies loss of vision and Denies eye pain ENT: Denies dizziness Cardiovascular: Cardiovascular: Reports no additional cardiovascular complaints, Denies chest pain, Denies lightheadedness, Denies Loss of Consciousness and Denies dyspnea Respiratory: Respiratory: Reports no additional respiratory complaints and Denies dyspnea Gastrointestinal: Gastrointestinal: Reports no additional gastrointestinal complaints, Denies abdominal pain, Denies melena, Denies hematochezia, Denies change in bowel habits and Denies change in stool character Genitourinary: Genitourinary: Reports no additional male genitourinary complaints, Denies hematuria, Denies oliguria, Denies difficulty urinating, Denies dysuria, Denies urinary frequency, Denies urinary hesitancy, Denies urinary incontinence and Denies urinary urgency Musculoskeletal: Musculoskeletal: Reports no additional musculoskeletal complaints, Denies numbness and Denies tingling Comments: needle in right upper arm Neurologic: Denies dizziness, Denies loss of vision, Denies numbness and Denies tingling Psychiatric: Psychiatric: Reports no additional psychiatric complaints Endocrine: Endocrine: Reports no additional endocrine complaints Hematologic/Lymphatic: Hematologic/Lymphatic: Reports no additional hematologic/lymphatic complaints Allergic/Immunologic: Allergic/Immunologic: Reports no additional allergic/immunologic complaints PMFSH Past Medical History Attestation statement: The following information was validated with the patient. Source: old records reviewed and nursing notes reviewed Onset Date is defined in the Problem List Problems that require an onset date and time if occurred within 24 hrs of arrival to the ED Aortic Dissection and Rupture; Neurologic impairment; Cardiopulmonary Arrest; Endotracheal Intubation; Insertion or Replacement of Mechanical Circulatory Assist Device Social History Social History Alcohol intake: former Patient Tobacco Use Status: Current everyday Tobacco user Substance Use Type: Crack/Cocaine and Heroin Advance Directives: No Advance Directives Information Provided: No Physical Exam ED Vital Signs: Vital Signs - 24 hr 06/28/23 22:12 06/29/23 01:53 Temperature 98.2 F Pulse Rate 85 86 Respiratory Rate 18 18 Blood Pressure 119/59 L 116/89 Pulse Oximetry 99 Oxygen Delivery Method Room Air BMI result Body Mass Index 22.5 Const General: cooperative, no acute distress, alert and awake Nutritional Appearance: well nourished Orientation/consciousness: patient oriented x3 Limitations: no limitations HENMT Head: Yes normal to inspection and Yes atraumatic Ears: hearing grossly normal bilaterally and external ears normal General nose exam: Normal external nose present, no nasal discharge noted and no epistaxis Face and sinus: Yes normal facial exam, No abrasion and No laceration Mouth: Normal oral and palatal mucosa present, no drooling and no muffled voice Eyes General: appearance normal, both eyes and all related structures Periorbital: periorbital findings normal Eyelids: Yes eyelids normal Conjunctivae: conjunctivae normal Pupils: Equal, round and reactive pupils present EOM: EOMs intact bilaterally Neck Neck: Yes normal visual inspection, Yes full ROM and Yes no lymphadenopathy Chest Chest palpation & inspection: normal inspection of the chest Resp Effort & Inspection: normal respiratory effort and able to speak in complete sentences GI Inspection: Yes normal to inspection Neuro General: patient oriented x3 and moves all extremities Cranial nerves: Yes Equal, round and reactive pupils present Cognition (Neuro): normal cognition Motor exam (neuro): 5/5 motor strength present throughout Sensory Exam: Normal double simultaneous stimulation for sensation Coordination: [id number] test normal Extrem General: Yes normal to inspection, Yes full ROM and Yes capillary refill normal Psych Appearance: grossly normal Mental Status: mental status grossly normal Affect: normal affect Attitude: cooperative Thought process: Normal thought process present Thought content: Normal thought content present Insight: Good insight present (Psych) Medications Administered Discontinued Medications Generic Name Dose Route Start Last Admin Trade Name Bony PRN Reason Stop Dose Admin Naloxone HCl 8 mg 06/29/23 01:41 06/29/23 01:52 Naloxone Hcl Nasal Take Home 4 Mg [place] NOSTRILALT 06/29/23 01:42 Not Given ONCE ONE Medical Decision Making Medical Decision Making [facility] Narrative: Patient is a 27 year old assigned male at with a history of IVDU presenting to the emergency department today with a needle in his right upper arm. Patient's physical exam was unremarkable. Patient's right elbow x-ray confirmed the piece of needle stuck in the patient's arm. I explained my physical exam findings as well as all test results to the patient. I answered all questions asked by the patient. I stressed the importance of the patient taking his medication as prescribed. I stressed the importance of the patient following up with his primary care provider and a general surgeon. I stressed the importance of the patient returning to the emergency department immediately if his symptoms were to worsen or if he were to develop any dizziness, shortness of breath, difficulty breathing, chest pain, blurry vision, loss of vision, nausea, vomiting, abdominal pain, fever, chills, back pain, or any other complaints. Patient verbalized agreement and understanding with this treatment plan and discharge. Differential Diagnosis Differential Diagnoses: The differential diagnosis associated with the presentation includes Retained needle in right upper arm Retained foreign body IVDU Admission/Observation Consideration of admission/observation: Escalation of care including admission/observation considered Patient would have been admitted to the hospital had his work up had any findings where hospital admission was appropriate and his clinical presentation warranted hospital admission. Independent Interpretation I performed an independent interpretation of an: Plain X-Ray Interpretation: My interpretation is in agreement with the radiologist's impression of this imaging study. EXAMINATION: XR ELBOW, RIGHT CLINICAL INFORMATION: Possible retained needle. COMPARISON: None available. TECHNIQUE: AP, lateral, and oblique views of the right elbow. FINDINGS: Needle-shaped foreign body projecting over the ventral soft tissues of the mid forearm on the lateral view. No fracture. Anatomic alignment. No joint effusion. XR/XR elbow RT min 3V IMPRESSION: 1. Needle-shaped foreign body projecting over the ventral soft tissues of the mid forearm on the lateral view. 2. No acute osseous findings. Dictated By: Sakina Ziegler Signed By: Electronically signed by Sakina Ziegler 06/28/23 [id number] Radiology Impression Discussion of test interpretation with radiology: I have reviewed the radiologist's reading. Discharge Plan Discharge Clinical Impression: Foreign body in right upper extremity Patient Disposition: Home, Self-Care Additional Instructions: You have a broken needle in the upper part of your right arm. The area around the needle does not appear infected at this time. Please follow up with a general surgeon for removal. Follow up with your primary care provider. Return to the emergency department immediately if your symptoms worsen or if you develop any dizziness, shortness of breath, difficulty breathing, chest pain, blurry vision, loss of vision, nausea, vomiting, abdominal pain, fever, chills, back pain, or any other complaints. Prescriptions: No Action cephalexin 500 mg capsule 500 mg PO QID 7 Days Qty: 28 0RF cephalexin 500 mg capsule 500 mg PO BID 10 Days Qty: 20 0RF Referrals: [facility] General Surgeons [Provider Group] (Call to establish and follow up with a general surgeon so they can remove the broken needle in your arm.) [facility] Family Medicine [Provider Group] (Call to establish and follow up with a primary care provider. If you already have a primary care provider, please follow up with them.) [facility] Primary Care, [place] [Provider Group] (Call to establish and follow up with a primary care provider. If you already have a primary care provider, please follow up with them.) [facility] Primary Care,[place] [Provider Group] (Call to establish and follow up with a primary care provider. If you already have a primary care provider, please follow up with them.) Interventions: ED Discharge Assessment Last Done: 06/29/23 01:53 Discharge Date/Time: 06/29/23 01:54 Print Language: Cameroonian
--- NOTE | 2023-06-29 01:52 | PC.NURSE ---
pt refused narcan take home at this time, states he has too many in his bag. provider aware.
[2023-06-29 01:53] VITALS: BP 116/89; PULSE 86; RESP 18
== END 2023-06-29 01:54 | disposition home or self-care (01) ==
PROVIDERS: Emergency Provider Internal Medicine
DX: M79.5 Residual foreign body in soft tissue (principal); M79.601 Pain in right arm; F19.90 Other psychoactive substance use, unspecified, uncomplicated; F17.200 Nicotine dependence, unspecified, uncomplicated
CPT/HCPCS: 73080; 99283

== ENCOUNTER 2023-07-15 23:38 | Emergency (ER) | payer OTHER, SELFPAY ==
[2023-07-16 00:08] VITALS: BP 131/77; PULSE 88; RESP 18; TEMP 37.3; O2SAT 97; BMI 25.9
[2023-07-16 00:30] LABS: MANUAL DIFF FLAG NO
[2023-07-16 00:31] LABS: Basophils Percent Auto 0.4 % (0-2); Eosinophils Percent Auto 0.2 % (0-4); Hematocrit 31.2 % (42.0-52.0); Hemoglobin 10.8 g/dl (14.0-18.0); Imm Gran Abs Auto 0.02 X10*3/uL (0.00-0.03); Imm Gran Pct Auto 0.4 % (0.0-0.4); Lymphocytes Percent Auto 21.5 % (20-40); Mean Corpuscular HGB Conc 34.6 g/dl (31.0-36.0); Mean Corpuscular Hemoglobin 27.9 pg (27.0-33.0); Mean Corpuscular Volume 80.6 fL (80.0-98.0); Mean Platelet Volume 8.7 fL (9.4-12.4); Monocytes Absolute Auto 0.4 X10*3/uL (0.1-1.2); Monocytes Percent Auto 7.8 % (2-11); Neutrophils Absolute Auto 3.1 x10*3/uL (2.0-8.3); Neutrophils Percent Auto 69.7 % (45-73); Platelet Count 171 X10*3/uL (160-400); Red Blood Count 3.87 X10*6/uL (4.60-5.80); Red Cell Distribution Width 13.3 % (11.0-16.0); White Blood Count 4.5 X10*3/uL (4.8-10.8)
[2023-07-16 00:44] LABS: Alanine Aminotransferase 15 U/L (0-40); Albumin Level 3.9 g/dL (3.5-5.0); Alkaline Phosphatase 72 U/L (39-117); Anion Gap 13 (12-20); Aspartate Amino Transferase 17 U/L (5-37); Bilirubin Total 0.7 mg/dL (0.0-1.0); Blood Urea Nitrogen 15 mg/dL (9-16); Calcium 8.8 mg/dL (8.4-10.2); Carbon Dioxide 27 mmol/L (22-29); Chloride 100 mmol/L (96-108); Creatinine Clr Calc Pharmacy 117.2; Estimated Glomerular Filt Rate > 60; Glucose Random 91 mg/dL (60-115); INTERNATIONAL NORM RATIO 1.1 (0.9-1.1); Potassium 4.3 mmol/L (3.3-5.1); Prothrombin Time 13.5 SEC (11.1-13.3); Sodium 136 mmol/L (135-145); Total Protein 7.2 g/dL (6.5-8.0)
[2023-07-16 00:49] VITALS: BP 126/64; PULSE 79; RESP 14; TEMP 36.9; O2SAT 96
[2023-07-16 03:48] VITALS: BP 106/42; PULSE 53; RESP 53; TEMP 36.6; O2SAT 97
--- NOTE | 2023-07-16 05:58 | ED.GENADULT ---
HPI - General Adult General Chief complaint: Abdominal Pain Stated complaint: blood in stool Time Seen by Provider: 07/16/23 05:42 History of Present Illness HPI narrative: Patient is a 27-year-old male who uses IV heroin and cocaine. About 3 days ago he had nausea and vomiting and he thought he was dose sick. He resumed heroin use and still had some nausea and vomiting. He also says that after passing a hard stool he passed some blood into the toilet. He has had no coffee-ground emesis. He has had no black stools. He has had no definite fevers. The patient is also concerned about his toenails. He has had problems with his toenails falling out and he has discomfort in his toenails currently. Related Data Previous Rx's Medication Instructions Recorded cephalexin 500 mg capsule 500 mg PO QID 7 days #28 caps 03/10/22 cephalexin 500 mg capsule 500 mg PO BID 10 days #20 caps 03/28/22 Allergies Allergy/AdvReac Type Severity Reaction Status Date / Time trazodone Allergy Palpitation Verified 06/28/23 22:20 s Review of Systems Review of Systems: Yes all other systems are reviewed and are negative [facility] Social History Social History Alcohol intake: former Patient Tobacco Use Status: Current everyday Tobacco user Substance Use Type: Crack/Cocaine and Heroin Advance Directives: No Advance Directives Information Provided: No Physical Exam ED Vital Signs: Vital Signs - 24 hr 07/16/23 00:08 07/16/23 00:49 07/16/23 03:48 Temperature 99.2 F 98.4 F 97.8 F Pulse Rate 88 79 53 Respiratory Rate 18 14 53 H Blood Pressure 131/77 126/64 106/42 L Pulse Oximetry 97 96 97 Oxygen Delivery Method Room Air Room Air Room Air 07/16/23 06:11 Temperature 98.6 F Pulse Rate 54 Respiratory Rate 16 Blood Pressure 97/48 L Pulse Oximetry 97 Oxygen Delivery Method Room Air BMI result Body Mass Index 25.9 Const Other: The patient was sleeping, apparently peacefully. He awoke easily with verbal stimulation. He awoke to a normal mental status. He does not appear acutely ill. HENMT Other: The face is symmetrical. ?Mucous membranes moist. Eyes Other: Pupils are round equal, conjunctivae are clear, extraocular movements intact Neck Other: Moving his neck easily, no neck swelling Resp Effort & Inspection: normal respiratory effort Auscultation: clear to auscultation bilaterally Cardio Rate: regular rate Rhythm: regular rhythm Heart sounds: S1 normal heart sound present and S2 normal heart sound present GI Other: The abdomen is soft and nontender. Patient was not interested in a rectal exam Skin Other: The skin is pale and dry. The patient's toenails show no signs of infection or other acute problems. He seems to have emerging toenails on both big toes. Neuro Other: The patient was sleeping peacefully when I entered the room. He woke easily with gentle stimulation. He awoke to a normal mental status. Face is symmetrical. Speech clear. Moving his extremities with normal strength and coordination. Seems grossly neurologically intact. Extrem Other: No peripheral edema Medical Decision Making Medical Decision Making [facility] Narrative: The patient is a 27-year-old male who presents complaining of blood in the toilet after passing a hard stool. He is a heroin user. His hemoglobin is stable. Metabolic panel is unremarkable. Patient's history of having blood in the toilet after passing a hard stool is suggestive of a hemorrhoidal problem. The patient as a stable hemoglobin. BUN is not elevated. The patient does not appear ill. I suspect the patient probably has had some rectal bleeding from constipation related to his heroin use. He refused a rectal exam. I think he is medically clear and stable. He is interested in trying to get off heroin and possibly get on methadone. The patient will therefore be kept in the emergency room to be seen by the recovery team this morning. Lab Data 07/16/23 00:26 07/16/23 00:26 Labs: Lab Results 07/16/23 Range/Units 00:26 WBC 4.5 L (4.8-10.8) X10*3/uL RBC 3.87 L (4.60-5.80) X10*6/uL Hgb 10.8 L (14.0-18.0) g/dl Hct 31.2 L (42.0-52.0) % MCV 80.6 (80.0-98.0) fL MCH 27.9 (27.0-33.0) pg MCHC 34.6 (31.0-36.0) g/dl RDW 13.3 (11.0-16.0) % Plt Count 171 (160-400) X10*3/uL MPV 8.7 L (9.4-12.4) fL Immature Gran % (Auto) 0.4 (0.0-0.4) % Neut % (Auto) 69.7 (45-73) % Lymph % (Auto) 21.5 (20-40) % Hart % (Auto) 7.8 (2-11) % Eos % (Auto) 0.2 (0-4) % Baso % (Auto) 0.4 (0-2) % Lymph # (Auto) 1.0 L (1.2-4.9) X10*3/uL Hart # (Auto) 0.4 (0.1-1.2) X10*3/uL Eos # (Auto) 0.0 (0.0-0.4) X10*3/uL Baso # (Auto) 0.0 (0.0-0.2) X10*3/uL Abs Immat Gran (auto) 0.02 (0.00-0.03) X10*3/uL Absolute Neuts (auto) 3.1 (2.0-8.3) x10*3/uL Absolute Nucleated RBC 0.000 (0.0-0.012) X10*3/uL Nucleated RBC % (auto) 0.0 (0.0-0.2) /100WBC PT 13.5 H (11.1-13.3) SEC INR 1.1 (0.9-1.1) Sodium 136 (135-145) mmol/L Potassium 4.3 (3.3-5.1) mmol/L Chloride 100 (96-108) mmol/L Carbon Dioxide 27 (22-29) mmol/L Anion Gap 13 (12-20) BUN 15 (9-16) mg/dL Creatinine 0.96 (0.5-1.4) mg/dL Estim Creat Clear Calc 117.2 Estimated GFR > 60 Random Glucose 91 (60-115) mg/dL Calcium 8.8 (8.4-10.2) mg/dL Total Bilirubin 0.7 (0.0-1.0) mg/dL AST 17 (5-37) U/L ALT 15 (0-40) U/L Alkaline Phosphatase 72 (39-117) U/L Total Protein 7.2 (6.5-8.0) g/dL Albumin 3.9 (3.5-5.0) g/dL Discharge Plan Discharge Clinical Impression: Opioid use disorder, Blood per rectum Patient Disposition: Still a Patient Prescriptions: No Action cephalexin 500 mg capsule 500 mg PO QID 7 Days Qty: 28 0RF cephalexin 500 mg capsule 500 mg PO BID 10 Days Qty: 20 0RF
[2023-07-16 06:11] VITALS: BP 97/48; PULSE 54; RESP 16; TEMP 37; O2SAT 97
--- NOTE | 2023-07-16 07:02 | PC.NURSE ---
Resumed care of patient, he is currently resting comfortably, awaiting recovery team at this time. All needs met
--- NOTE | 2023-07-16 08:50 | MHC.RECOVRN ---
Met with pt in ED2 after pt requesting to speak with recovery. Pt had presented to the ED with bloody stool, intermittent diarrhea, abdominal pain. Pt laying in bed, asleep, wakes to voice, appears comfortable. Pt reports heroin/fentanyl use, 1-2 bundles daily, IV, as well as cocaine, 1 gram daily, IV, last use 12 hours ago. Pt currently reporting anxiety and hot/cold sweats. No yawning, rhinorrhea, goosebumps, restlessness noted. Pt reports having been on methadone through [facility], 120 mg daily, last dose a few months ago. Pt states I just stopped going. Denies issues with transportation. Pt is interested in resuming methadone and returning to [facility] to continue care. Pt denies questions or concerns for t/w. Discussed with Liana Powell APRN, as well as provider. Plan to administer 30 mg methadone and follow up with [facility] tomorrow. Referral has been sent.
[2023-07-16] MEDS: methADONE HCl 20 MG/2 ML ORAL.CONC 30 MG PO (09:07)
== END 2023-07-16 09:11 | disposition home or self-care (01) ==
PROVIDERS: Emergency Provider Emergency Medicine
DX: F11.988 Opioid use, unspecified with other opioid-induced disorder (principal); K62.5 Hemorrhage of anus and rectum
CPT/HCPCS: 36415; 80053; 85025; 85610; 99283; 99284

== ENCOUNTER 2023-07-27 01:07 | Emergency (ER) | payer OTHER, SELFPAY ==
[2023-07-27 01:08] VITALS: BP 106/65; PULSE 88; RESP 16; TEMP 36.6; O2SAT 95; BMI 25.8
[2023-07-27 02:05] LABS: MANUAL DIFF FLAG NO
[2023-07-27 02:06] LABS: Basophils Percent Auto 0.3 % (0-2); Hematocrit 33.5 % (42.0-52.0); Hemoglobin 11.4 g/dl (14.0-18.0); Imm Gran Abs Auto 0.01 X10*3/uL (0.00-0.03); Imm Gran Pct Auto 0.2 % (0.0-0.4); Lymphocytes Absolute Auto 1.2 X10*3/uL (1.2-4.9); Lymphocytes Percent Auto 21.4 % (20-40); Mean Corpuscular Hemoglobin 27.7 pg (27.0-33.0); Mean Corpuscular Volume 81.3 fL (80.0-98.0); Mean Platelet Volume 9.3 fL (9.4-12.4); Monocytes Absolute Auto 0.5 X10*3/uL (0.1-1.2); Monocytes Percent Auto 9.1 % (2-11); Platelet Count 157 X10*3/uL (160-400); Red Blood Count 4.12 X10*6/uL (4.60-5.80); Red Cell Distribution Width 13.2 % (11.0-16.0); White Blood Count 5.7 X10*3/uL (4.8-10.8)
[2023-07-27 02:21] LABS: Alanine Aminotransferase 16 U/L (0-40); Alkaline Phosphatase 62 U/L (39-117); Anion Gap 15 (12-20); Aspartate Amino Transferase 21 U/L (5-37); Bilirubin Total 0.5 mg/dL (0.0-1.0); Blood Urea Nitrogen 16 mg/dL (9-16); Calcium 9.3 mg/dL (8.4-10.2); Carbon Dioxide 27 mmol/L (22-29); Chloride 100 mmol/L (96-108); Estimated Glomerular Filt Rate > 60; Ethanol < 10 mg/dL; Glucose Random 115 mg/dL (60-115); Potassium 5.1 mmol/L (3.3-5.1); Sodium 137 mmol/L (135-145); Total Protein 7.5 g/dL (6.5-8.0)
[2023-07-27 04:00] VITALS: BP 94/49; PULSE 57; RESP 16; TEMP 36.7; O2SAT 96
--- NOTE | 2023-07-27 05:01 | ED.GENADULT ---
HPI - General Adult General Chief complaint: ETOH/Substance Use Stated complaint: drug withdrawal Time Seen by Provider: 07/27/23 03:55 Source: patient Mode of arrival: ambulatory History of Present Illness HPI narrative: 27-year-old male who reports consistent heroin use and reports his last heroin use was approximately 7 hours ago, patient states he has been in rehab program but reports that was over 1 year ago. Patient reports some muscle spasms but otherwise denies any shortness of breath/chest pain/palpitations/nausea/vomiting/fever/chills. Patient denies any SI/HI. Related Data Previous Rx's Medication Instructions Recorded cephalexin 500 mg capsule 500 mg PO QID 7 days #28 caps 03/10/22 cephalexin 500 mg capsule 500 mg PO BID 10 days #20 caps 03/28/22 Allergies Allergy/AdvReac Type Severity Reaction Status Date / Time trazodone Allergy Palpitation Verified 07/27/23 01:11 s Review of Systems Review of Systems: Pertinent positives and negatives as stated in HPI [facility] Past Medical History Source: nursing notes reviewed Social History Social History Alcohol intake: former Patient Tobacco Use Status: Current everyday Tobacco user Smoked in Last 30 Days: Yes Use of substances other than those prescribed or required for medical reasons: Yes Substance Use Type: Crack/Cocaine and Heroin Advance Directives: No Advance Directives Information Provided: No Physical Exam ED Vital Signs: Vital Signs - 24 hr 07/27/23 01:08 07/27/23 04:00 07/27/23 05:46 Temperature 98 F 98.1 F Pulse Rate 88 57 57 Pulse Rate [Monitor] Respiratory Rate 16 16 16 Blood Pressure 106/65 94/49 L 112/46 L Pulse Oximetry 95 96 98 Oxygen Delivery Method Room Air Room Air Room Air 07/27/23 05:47 Temperature Pulse Rate Pulse Rate [Monitor] 57 Respiratory Rate Blood Pressure Pulse Oximetry Oxygen Delivery Method BMI result Body Mass Index 25.8 VITAL SIGNS: Reviewed. GENERAL: Well developed, well nourished, in no acute distress. HEAD: Normocephalic/atraumatic EYES: PERRLA, EOMI EARS: Ext canals without abnormality, TMs non-bulging and non-erythematous NOSE: Nares patent bilateral OROPHARYNX: no oral lesions noted, posterior pharynx clear and non-erythematous without noted tonsillar enlargement/erythema/exudates NECK: Supple, no adenopathy LUNGS: Normal breath sounds. No adventitious sounds or accessory muscle use. SpO2<96> CARDIOVASCULAR: Regular rate and rhythm without noted murmurs ABDOMEN: Soft, non-tender, non-distended with bowel sounds. MUSCULOSKELETAL: No tenderness, deformities, or effusions noted on gross inspection. EXTREMITIES: No cyanosis, clubbing or edema. SKIN: Inspection of the skin reveals no rashes NEUROLOGIC: Alert and oriented x 4. Strength and sensation to light touch were grossly intact x 4. Medications Administered Discontinued Medications Generic Name Dose Route Start Last Admin Trade Name Freq PRN Reason Stop Dose Admin Tizanidine HCl 4 mg 07/27/23 05:03 07/27/23 05:40 Tizanidine Hcl 4 Mg Tablet PO 07/27/23 05:04 4 mg ONCE ONE Administration Medical Decision Making Medical Decision Making [facility] Narrative: 27-year-old male who is resting comfortably and sleeping in the bed prior to my questions and has a history and clinical presentation consistent with self-reported heroin use. Does not appear to be in significant discomfort, I do not note any significant withdrawal symptoms at this time and patient last used 7 hours ago. I will provide him with information and discharge paperwork for follow-up at the [facility]. I reviewed all investigations and hematologic indices demonstrate chronically stable lab work as there is no evidence of leukocytosis or left shift and there is a stable normocytic anemia any consistent low platelet count. Chemistry indices are grossly within normal limits and there are no derangements. Specifically there is no evidence of ANKITA/electrolyte or liver enzyme abnormalities. BAL <10, UDS demonstrates positivity for polysubstance. Patient is currently stable for discharge and follow-up at the [facility]. Differential Diagnosis Differential Diagnoses: The differential diagnosis associated with the presentation includes Please see the discussion above Admission/Observation Consideration of admission/observation: Escalation of care including admission/observation considered Please see the discussion above Lab Data [facility] Lab Attestation statement: I reviewed the patient's lab results. Please see the discussion above 07/27/23 02:01 07/27/23 02:01 Labs: Lab Results 07/27/23 07/27/23 Range/Units 02:01 05:41 WBC 5.7 (4.8-10.8) X10*3/uL RBC 4.12 L (4.60-5.80) X10*6/uL Hgb 11.4 L (14.0-18.0) g/dl Hct 33.5 L (42.0-52.0) % MCV 81.3 (80.0-98.0) fL MCH 27.7 (27.0-33.0) pg MCHC 34.0 (31.0-36.0) g/dl RDW 13.2 (11.0-16.0) % Plt Count 157 L (160-400) X10*3/uL MPV 9.3 L (9.4-12.4) fL Immature Gran % (Auto) 0.2 (0.0-0.4) % Neut % (Auto) 69.0 (45-73) % Lymph % (Auto) 21.4 (20-40) % [place] % (Auto) 9.1 (2-11) % Eos % (Auto) 0.0 (0-4) % Baso % (Auto) 0.3 (0-2) % Lymph # (Auto) 1.2 (1.2-4.9) X10*3/uL [place] # (Auto) 0.5 (0.1-1.2) X10*3/uL Eos # (Auto) 0.0 (0.0-0.4) X10*3/uL Baso # (Auto) 0.0 (0.0-0.2) X10*3/uL Abs Immat Gran (auto) 0.01 (0.00-0.03) X10*3/uL Absolute Neuts (auto) 4.0 (2.0-8.3) x10*3/uL Absolute Nucleated RBC 0.000 (0.0-0.012) X10*3/uL Nucleated RBC % (auto) 0.0 (0.0-0.2) /100WBC Sodium 137 (135-145) mmol/L Potassium 5.1 (3.3-5.1) mmol/L Chloride 100 (96-108) mmol/L Carbon Dioxide 27 (22-29) mmol/L Anion Gap 15 (12-20) BUN 16 (9-16) mg/dL Creatinine 0.93 (0.5-1.4) mg/dL Estim Creat Clear Calc 121.0 Estimated GFR > 60 Random Glucose 115 (60-115) mg/dL Calcium 9.3 (8.4-10.2) mg/dL Total Bilirubin 0.5 (0.0-1.0) mg/dL AST 21 (5-37) U/L ALT 16 (0-40) U/L Alkaline Phosphatase 62 (39-117) U/L Total Protein 7.5 (6.5-8.0) g/dL Albumin 4.0 (3.5-5.0) g/dL Urine Opiates Screen POSITIVE H (Not Detect) Urine Fentanyl Screen POSITIVE H (Not Detect) Ur Barbiturates Screen Not Detected (Not Detect) Ur Phencyclidine Scrn Not Detected (Not Detect) Ur Amphetamines Screen Not Detected (Not Detect) U Benzodiazepines Scrn Not Detected (Not Detect) Urine Cocaine Screen POSITIVE H (Not Detect) U Marijuana (THC) Screen Not Detected (Not Detect) Ethyl Alcohol < 10 mg/dL External Record Review External record reviewed: Outpatient record and Prior outpatient labs Discharge Plan Discharge Clinical Impression: Polysubstance use disorder Patient Disposition: Home, Self-Care Instructions: Polysubstance Abuse (ED) Additional Instructions: 1. You have been given the address/phone number for the [facility] which is located here in [place] and can provide you assistance with detox. Return to the ER for any worsening symptoms. Prescriptions: No Action cephalexin 500 mg capsule 500 mg PO QID 7 Days Qty: 28 0RF cephalexin 500 mg capsule 500 mg PO BID 10 Days Qty: 20 0RF
[2023-07-27] MEDS: TiZANidine HCL 4 MG TABLET PO (05:40)
[2023-07-27 05:43] VITALS: PULSE 57
[2023-07-27 05:46] VITALS: BP 112/46; PULSE 57; RESP 16; O2SAT 98
[2023-07-27 05:47] VITALS: PULSE 57
[2023-07-27 05:53] LABS: Amphetamine Screen Urine Not Detected (Not Detect); Barbiturates, Urine Not Detected (Not Detect); Benzodiazepines Screen Urine Not Detected (Not Detect); Cannabinoid Screen Urine Not Detected (Not Detect); Cocaine Screen Urine POSITIVE (Not Detect); Fentanyl, urine POSITIVE (Not Detect); Opiate Screen Urine POSITIVE (Not Detect); Phencyclidine Screen Urine Not Detected (Not Detect)
--- NOTE | 2023-07-27 06:40 | PC.NURSE ---
pt refusing narcan states he has a whole bunch. axox4 ambulatory with steady gait. comprehensive care pamphlet provided. pt verbalizes understanding d/c instructions.
== END 2023-07-27 06:45 | disposition home or self-care (01) ==
PROVIDERS: Emergency Provider Student in an Organized Health Care Education/Training Program
DX: F11.23 Opioid dependence with withdrawal (principal); M62.830 Muscle spasm of back; F14.10 Cocaine abuse, uncomplicated; F17.200 Nicotine dependence, unspecified, uncomplicated; Z79.899 Other long term (current) drug therapy
CPT/HCPCS: 36415; 80053; 80307; 85025; 99283; 99285

== ENCOUNTER 2024-04-23 19:51 | Emergency (ER) | payer OTHER, SELFPAY ==
--- NOTE | ~2024-04-23 | XR_ITS ---
EXAMINATION: XR FOOT, LEFT CLINICAL INFORMATION: Pain in foot without known injury COMPARISON: Left foot 03/28/2022 TECHNIQUE: AP, lateral, and oblique views of the left foot. FINDINGS: There is soft tissue swelling adjacent to the head of the first metatarsal. There is a lateral metatarsal head erosion with sclerotic overhanging margins. No calcified tophi. No other abnormality is seen in the foot. XR/XR foot LT 2V IMPRESSION: Soft tissue swelling adjacent to the head of the first metatarsal with an erosion. Findings are suggestive of gout. Electronically signed by: Onur Hobson MD 04/23/2024 08:54 PM EDT
--- NOTE | 2024-04-23 20:09 | ED.LOWEXIN ---
HPI - Extremity Injury (Lower) General Chief Complaint: Extremity Injury, Lower Stated Complaint: left ft big toe broken? Time Seen by Provider: 04/23/24 20:56 Source: patient and old records reviewed Mode of arrival: ambulatory Limitations: no limitations History of Present Illness ED Provider: JUAN HUDSON Narrative: 28 yo male with PMH of MRSA and polysubstance abuse here with c/o L great toe pain and redness x 2 days at 1st MTP joint no trauma. Came out of nowhere does not inject in legs or feet. No spread of pink area over MTP joint he denies fevers. Hurts to walk. Has not had gout before. MD complaint: other (toe pain) Onset (ago): day(s) (2) Place: home Severity: moderate Relieving factors: immobilization Exacerbating factors: weight bearing, movement and palpation Context: other Associated symptoms: swelling and able to partially bear weight Other symptoms: other (slight pink area) Related Data Previous Rx's ?Medication ?Instructions ?Recorded cephalexin 500 mg capsule 500 mg PO QID 7 days #28 caps 03/10/22 cephalexin 500 mg capsule 500 mg PO BID 10 days #20 caps 03/28/22 ibuprofen 600 mg tablet 600 mg PO Q6H PRN pain #30 tabs 04/23/24 prednisone 20 mg tablet 40 mg (2 x 20 mg) PO DAILY 5 days 04/23/24 #10 tabs Allergies Allergy/AdvReac Type Severity Reaction Status Date / Time trazodone Allergy Palpitation Verified 04/23/24 20:20 s Review of Systems Review of Systems: Constitutional : No Fever, No Chills ENT/Mouth : No Ear Pain, No Hoarseness, No sore throat Eyes: No Eye Pain, No Swelling, No Redness, No Foreign Body Cardiovascular : No Chest Pain, No SOB Respiratory : No Cough, No Dyspnea Gastrointestinal : No Nausea, No Vomiting, No Diarrhea, No abdominal Pain Genitourinary : No Dysuria, No Hematuria Musculoskeletal : positive joint pain, No Myalgias, pos Joint Swelling Skin : No Skin lacerations, pos rash Neuro : No Weakness, No Numbness, No Loss of Consciousness, No Dizziness, No Headache All other systems reviewed and are negative PMFSH Past Medical History Attestation statement: The following information was validated with the patient. Source: old records reviewed Medical History (Updated 04/23/24 @ 21:07 by Marilyn Hamm DO) MRSA infection Social History Social History Alcohol intake: former Patient Tobacco Use Status: Current everyday Tobacco user Substance Use Type: Crack/Cocaine and Heroin Advance Directives: No Advance Directives Information Provided: No Physical Exam Vital Signs: Vital Signs: Last Vital Signs Temp 98.3 F 04/23/24 20:19 Pulse 88 04/23/24 20:19 Resp 18 04/23/24 20:19 BP 117/75 04/23/24 20:19 Pulse Ox 96 04/23/24 20:19 O2 Del Method Room Air 04/23/24 20:19 BMI result Body Mass Index 24.2 Appearance: Alert. Oriented X3. No acute distress. Eyes: Pupils equal, round and reactive to light. ENT: Pharynx normal. Neck: Normal inspection. Neck supple. CVS: Normal heart rate and rhythm. Pulses normal. Respiratory: No respiratory distress. Breath sounds normal. Abdomen: Soft and nontender. Skin: Skin warm and dry. Normal skin color. L foot 1st MTP on dorsum mild pink area, warm to touch no swelling ttp distal NV intact toes are normal but nails are thickened, no other signs of redness or rash, no breaks in skin. No track valencia no extension to ankle/calf Extremities: No lower extremity edema. Neuro: Oriented X 3. No motor deficit. No sensory deficit. Course Course Course Narrative: This is a rapid medical exam. Deferred additional HPI, ROS, PE to primary provider. 28yo male with history of polysubstance use here with complaints of left great toe pain which began hurting while he was walking. Will obtain x-rays WALT Mahmood APRN Medical Decision Making Medical Decision Making MDM Narrative: 28 yo male with PMH of MRSA and polysubstance abuse here with c/o l great toe pain on exam he is NV intact it is well localized to the 1st MTP joint just on dorsum there is no effusion noted clinically and his toes are normal in appearance he has no systemic symptoms to suggest infection. At this time suspect gout will start on motrin and steroids. Differential Diagnosis Differential Diagnoses: The differential diagnosis associated with the presentation includes gout, arthritis Independent Interpretation I performed an independent interpretation of an: Plain X-Ray (no fx) Radiology Impression Discussion of test interpretation with radiology: I have reviewed the radiologist's reading. External Record Review External record reviewed: Outpatient record Prescription Management I considered prescription management with: Pain Medication and Other Discharge Plan Discharge Clinical Impression: Gout of big toe Patient Disposition: Home, Self-Care Instructions: Low Purine Diet (ED), Gout (ED) Additional Instructions: return for any worsening redness, swelling, fevers finish all steroids take steroids with food follow up with your doctor Prescriptions: New prednisone 20 mg tablet 40 mg PO DAILY 5 Days Qty: 10 0RF ibuprofen 600 mg tablet 600 mg PO Q6H PRN (Reason: pain) Qty: 30 0RF No Action cephalexin 500 mg capsule 500 mg PO QID 7 Days Qty: 28 0RF cephalexin 500 mg capsule 500 mg PO BID 10 Days Qty: 20 0RF Print Language: [place]
[2024-04-23 20:19] VITALS: BP 117/75; PULSE 88; RESP 18; TEMP 36.8; O2SAT 96; BMI 24.2
[2024-04-23] MEDS: Ketorolac Tromethamine 30 MG/ML VIAL IM (21:34)
[2024-04-23] MEDS: predniSONE 20 MG TABLET 60 MG PO (21:34)
--- NOTE | 2024-04-23 21:55 | PC.NURSE ---
Pt. refused discharge vital signs.
[2024-04-23 21:56] VITALS: BP 0/0; PULSE 0; RESP 20; TEMP -17.7; TEMP 0
== END 2024-04-23 21:58 | disposition home or self-care (01) ==
PROVIDERS: Emergency Provider Emergency Medicine
DX: M10.072 Idiopathic gout, left ankle and foot (principal); M79.672 Pain in left foot; F17.210 Nicotine dependence, cigarettes, uncomplicated
CPT/HCPCS: 73620; 96372; 99283; 99284; J1885

== ENCOUNTER 2024-05-23 23:05 | Emergency (ER) | payer OTHER, SELFPAY ==
--- NOTE | ~2024-05-23 | XR_ITS ---
EXAMINATION: XR HAND, RIGHT CLINICAL INFORMATION: pain, swelling COMPARISON: None available. TECHNIQUE: PA, lateral, and oblique views of the right hand. FINDINGS: The bone mineralization is normal. The joint spaces are maintained. There is no fracture. There appears to be mild soft tissue swelling along the dorsum of the hand. XR/XR hand RT min 3V IMPRESSION: Mild soft tissue swelling. No fracture or dislocation. Electronically signed by: Shabbir Trammell MD 05/24/2024 03:43 AM KHANG ANDRES
--- NOTE | 2024-05-23 23:28 | PC.NURSE ---
After checking in with registration, the patient went straight to the rest room. After approx 10 minutes this rn walked over to the restroom to check in on the patient. I received verbal confirmation that all was well and encouraged the patient to come to the triage room once he was complete. Triage delayed for this reason
[2024-05-23 23:35] VITALS: BP 142/98; PULSE 105; RESP 16; TEMP 36.9; O2SAT 98; BMI 25.2
--- NOTE | 2024-05-24 02:40 | ED_ITS ---
HPI - Extremity Problem General Chief complaint: Extremity Problem Stated complaint: hand inj? Time Seen by Provider: 05/24/24 02:14 Source: patient and old records reviewed Mode of arrival: ambulatory Limitations: no limitations History of Present Illness ED Provider: JUAN HUDSON Narrative: 28 yo male with IVDA here with c/o unexplained atraumatic R hand swelling. He states this developed over a couple of days. He thinks something bit him. He denies prior injury to the hand. It is not itchy, there is no fevers, redness, drainage. MD Complaint: extremity pain Onset (ago): day(s) (couple) Pain Consistency: intermittent Location: right and other (hand) Quality: aching Radiation: none Relieving factors: nothing Exacerbating factors: palpation Associated symptoms: denies other symptoms Related Data Previous Rx's ?Medication ?Instructions ?Recorded cephalexin 500 mg capsule 500 mg PO QID 7 days #28 caps 03/10/22 cephalexin 500 mg capsule 500 mg PO BID 10 days #20 caps 03/28/22 ibuprofen 600 mg tablet 600 mg PO Q6H PRN pain #30 tabs 04/23/24 prednisone 20 mg tablet 40 mg (2 x 20 mg) PO DAILY 5 days 04/23/24 #10 tabs Allergies Allergy/AdvReac Type Severity Reaction Status Date / Time trazodone Allergy Palpitation Verified 05/23/24 23:38 s Review of Systems Review of Systems: Constitutional : No Fever, No Chills ENT/Mouth : No Ear Pain, No Hoarseness, No sore throat Eyes: No Eye Pain, No Swelling, No Redness, No Foreign Body Cardiovascular : No Chest Pain, No SOB Respiratory : No Cough, No Dyspnea Gastrointestinal : No Nausea, No Vomiting, No Diarrhea, No abdominal Pain Genitourinary : No Dysuria, No Hematuria Musculoskeletal : positive joint pain, No Myalgias, pos Joint Swelling Skin : No Skin lacerations, No rash Neuro : No Weakness, No Numbness All other systems reviewed and are negative [facility] Past Medical History Attestation statement: The following information was validated with the patient. Source: old records reviewed Medical History MRSA infection Social History Social History Alcohol intake: former Patient Tobacco Use Status: Current everyday Tobacco user Substance Use Type: Crack/Cocaine and Heroin Advance Directives: No Advance Directives Information Provided: Yes Physical Exam Vital Signs: Vital Signs: Last Vital Signs Temp 98.4 F 05/23/24 23:35 Pulse 105 H 05/23/24 23:35 Resp 16 05/23/24 23:35 BP 142/98 H 05/23/24 23:35 Pulse Ox 98 05/23/24 23:35 O2 Del Method Room Air 05/23/24 23:35 BMI result Body Mass Index 25.2 Appearance: Alert. Oriented X3. No acute distress. Eyes: Pupils equal, round and reactive to light. ENT: Pharynx normal. Neck: Normal inspection. CVS: Pulses normal. Respiratory: No respiratory distress. Abdomen: Soft and non-tender. Skin: Skin warm and dry. Normal skin color. Extremities: No lower extremity edema. R hand swelling dorsum to 4th and 5th metacarpal area - no redness, no swelling, 2+ radial pulse, there is not warmth or fluctuance he has to small puncture wounds but no signs of infection he can flex and extend - it seems more like a contusion Neuro: Oriented X 3. No motor deficit. No sensory deficit. Medical Decision Making Medical Decision Making MDM Narrative: 28 yo male with PMH of IVDA here with R hand swelling but no signs of infection he has normal ROM and is NV intact - it seems more like a contusion there is no cellulitis or abscess. Xray ordered. Differential Diagnosis Differential Diagnoses: The differential diagnosis associated with the presentation includes contusion, IVDA, fracture Independent Interpretation I performed an independent interpretation of an: Plain X-Ray (no fx) Radiology Impression Discussion of test interpretation with radiology: I have reviewed the radiologist's reading. External Record Review External record reviewed: Office record Discharge Plan Discharge Clinical Impression: Hand swelling Patient Disposition: Home, Self-Care Instructions: Contusion in Adults (ED) Additional Instructions: there is no sign of cellulitis or abscess at this time no broken bone on xray it is hard to say if this is a response to a bite as you were asking or a contusion please return for fevers, redness, drainage Prescriptions: No Action cephalexin 500 mg capsule 500 mg PO QID 7 Days Qty: 28 0RF cephalexin 500 mg capsule 500 mg PO BID 10 Days Qty: 20 0RF prednisone 20 mg tablet 40 mg PO DAILY 5 Days Qty: 10 0RF ibuprofen 600 mg tablet 600 mg PO Q6H PRN (Reason: pain) Qty: 30 0RF Print Language: Sami
[2024-05-24 03:34] VITALS: BP 118/60; PULSE 57; RESP 16; TEMP 36.6; O2SAT 97
[2024-05-24 03:56] VITALS: BP 118/60; PULSE 57; RESP 16; TEMP 36.6; O2SAT 97
== END 2024-05-24 03:57 | disposition home or self-care (01) ==
PROVIDERS: Emergency Provider Emergency Medicine
DX: M79.89 Other specified soft tissue disorders (principal); M79.641 Pain in right hand
CPT/HCPCS: 73130; 99283; 99284

== ENCOUNTER 2024-06-04 12:04 | Emergency (ER) | payer OTHER, SELFPAY ==
[2024-06-04 12:08] VITALS: BP 140/96; PULSE 96; O2SAT 99
--- NOTE | 2024-06-04 12:13 | ED_ITS ---
HPI - General Adult General Chief complaint: General Medical Stated complaint: BLISTERS ON FEET Time Seen by Provider: 06/04/24 12:12 Source: patient and EMS Mode of arrival: EMS Limitations: no limitations History of Present Illness ED Provider: Mariangel Jamison PA-C HPI narrative: Patient is a 28 year old assigned male at with a history of IVDU presenting to the emergency department today with bilateral toe blisters / pain. Patient states that over the last 5 days he has had bilateral 5th, 4th, and 3rd toe redness / swelling / pain. Patient states that he was wearing different s hoes that were causing his feet to get wet and rub. Patient states that he has now changed shoes and that has gotten better but his toes remain red / swollen. Patient denies any dizziness, lightheadedness, abdominal pain, nausea, vomiting, fever, chills, blurry vision, double vision, loss of vision, chest pain, difficulty breathing, shortness of breath, back pain, night sweats, pain with urination, increased urinary frequency, increased urinary urgency, blood in his urine or stool, syncope or a near syncopal episode, bowel incontinence, bladder incontinence, or any other complaints at this time. Onset (ago): day(s) (5) Relieving factors: none Exacerbating factors: none Associated symptoms: denies other symptoms Treatments prior to arrival: none Related Data Previous Rx's ?Medication ?Instructions ?Recorded cephalexin 500 mg capsule 500 mg PO QID 7 days #28 caps 03/10/22 cephalexin 500 mg capsule 500 mg PO BID 10 days #20 caps 03/28/22 ibuprofen 600 mg tablet 600 mg PO Q6H PRN pain #30 tabs 04/23/24 prednisone 20 mg tablet 40 mg (2 x 20 mg) PO DAILY 5 days 04/23/24 #10 tabs cephalexin 500 mg capsule 500 mg PO Q6H 7 days #28 caps 06/04/24 doxycycline hyclate 100 mg tablet 100 mg PO BID 7 days #14 tabs 06/04/24 fluconazole 150 mg tablet 150 mg PO Q3D 1 dose #1 tab 06/04/24 Allergies Allergy/AdvReac Type Severity Reaction Status Date / Time trazodone Allergy Palpitation Verified 06/04/24 12:17 s Review of Systems Constitutional: Constitutional: Reports no additional constitutional complaints, Denies chills, Denies fever(s) and Denies night sweats Eyes: Eyes: Reports no additional eye complaints, Denies blurry vision, Denies change in vision, Denies diplopia, Denies eye discharge, Denies loss of vision and Denies eye pain ENT: Denies dizziness Cardiovascular: Cardiovascular: Reports no additional cardiovascular complaints, Denies chest pain, Denies lightheadedness, Denies Loss of Consciousness and Denies dyspnea Respiratory: Respiratory: Reports no additional respiratory complaints and Denies dyspnea Gastrointestinal: Gastrointestinal: Reports no additional gastrointestinal complaints, Denies abdominal pain, Denies melena, Denies hematochezia, Denies change in bowel habits and Denies change in stool character Genitourinary: Genitourinary: Reports no additional male genitourinary complaints, Denies hematuria, Denies oliguria, Denies difficulty urinating, Denies dysuria, Denies urinary frequency, Denies urinary hesitancy, Denies urinary incontinence and Denies urinary urgency Musculoskeletal: Musculoskeletal: Reports no additional musculoskeletal complaints, Denies numbness and Denies tingling Comments: bilateral 5th, 4th, and 3rd toe pain + redness + swelling Neurologic: Denies dizziness, Denies loss of vision, Denies numbness and Denies tingling Psychiatric: Psychiatric: Reports no additional psychiatric complaints Endocrine: Endocrine: Reports no additional endocrine complaints Hematologic/Lymphatic: Hematologic/Lymphatic: Reports no additional hematologic/lymphatic complaints Allergic/Immunologic: Allergic/Immunologic: Reports no additional allergic/immunologic complaints [facility] Past Medical History Attestation statement: The following information was validated with the patient. Source: old records reviewed and nursing notes reviewed Medical History MRSA infection Social History Social History Alcohol intake: former Patient Tobacco Use Status: Current everyday Tobacco user Substance Use Type: Crack/Cocaine and Heroin Advance Directives: No Advance Directives Information Provided: Yes Do you have a plan to hurt others: No Plan Physical Exam ED Vital Signs: Vital Signs - 24 hr 06/04/24 12:17 06/04/24 13:04 Temperature 98.3 F 98.3 F Pulse Rate 82 82 Respiratory Rate 18 18 Blood Pressure 134/99 H 134/99 H Pulse Oximetry 97 97 Oxygen Delivery Method Room Air Room Air BMI result Body Mass Index 25.8 Const General: cooperative, no acute distress, alert and awake Nutritional Appearance: well nourished Orientation/consciousness: patient oriented x3 Limitations: no limitations HENMT Head: Yes normal to inspection and Yes atraumatic Ears: hearing grossly normal bilaterally and external ears normal General nose exam: Normal external nose present, no nasal discharge noted and no epistaxis Face and sinus: Yes normal facial exam, No abrasion and No laceration Mouth: Normal oral and palatal mucosa present, no drooling and no muffled voice Eyes General: appearance normal, both eyes and all related structures Periorbital: periorbital findings normal Eyelids: Yes eyelids normal Conjunctivae: conjunctivae normal Pupils: Equal, round and reactive pupils present EOM: EOMs intact bilaterally Neck Neck: Yes normal visual inspection, Yes full ROM and Yes no lymphadenopathy Chest Chest palpation & inspection: normal inspection of the chest Resp Effort & Inspection: normal respiratory effort and able to speak in complete sentences GI Inspection: Yes normal to inspection Neuro General: patient oriented x3 and moves all extremities Cranial nerves: Yes Equal, round and reactive pupils present Cognition (Neuro): normal cognition Extrem Other: erythema / swelling / warmth present to the dorsal aspects of the right 5th, 4th, and 3rd toes with each toe nail having varying degrees of yellowing General: Yes full ROM and Yes capillary refill normal Psych Appearance: grossly normal Mental Status: mental status grossly normal Affect: normal affect Attitude: cooperative Thought process: Normal thought process present Thought content: Normal thought content present Insight: Good insight present (Psych) Medications Administered Discontinued Medications Generic Name Dose Route Start Last Admin Trade Name Bony PRN Reason Stop Dose Admin Cephalexin HCl 500 mg 06/04/24 12:16 06/04/24 12:28 Cephalexin 500 Mg Capsule PO 06/04/24 12:17 500 mg ONCE ONE Administration Doxycycline Monohydrate 100 mg 06/04/24 12:16 06/04/24 12:28 Doxycycline Monohydrate 100 Mg Capsule PO 06/04/24 12:17 100 mg ONCE ONE Administration Fluconazole 150 mg 06/04/24 12:16 06/04/24 12:28 Fluconazole 150 Mg Tablet PO 06/04/24 12:17 150 mg ONCE ONE Administration Naloxone HCl 8 mg 06/04/24 12:36 06/04/24 13:03 Naloxone Hcl Nasal Take Home 4 Mg [place] NOSTRILALT 06/04/24 12:37 Not Given ONCE ONE Nystatin 1 appl 06/04/24 12:17 06/04/24 12:28 Nystatin Powder 15 Gm Bottle TOPICAL 06/04/24 12:18 1 appl ONCE ONE Administration Protocol Medical Decision Making Medical Decision Making MDM Narrative: Patient is a 28 year old assigned male at with a history of IVDU presenting to the emergency department today with bilateral toe blisters / pain. Patient's physical exam was as noted in the physical exam portion of this note. Patient's examination is most consistent with cellulitis of the toes and a yeast infection consistent with Athlete's foot. I explained my physical exam findings as well as all test results to the patient. I answered all questions asked by the patient. I stressed the importance of the patient taking his medication as directed (either prescribed or as the over the counter packaging recommends). I stressed the importance of the patient following up with his primary care provider. I stressed the importance of the patient returning to the emergency department immediately if his symptoms were to worsen or if he were to develop any dizziness, shortness of breath, difficulty breathing, chest pain, blurry vision, loss of vision, nausea, vomiting, abdominal pain, fever, chills, back pain, or any other complaints. Patient verbalized agreement and understanding with this treatment plan and discharge. Differential Diagnosis Differential Diagnoses: The differential diagnosis associated with the presentation includes Cellulitis Yeast infection Admission/Observation Consideration of admission/observation: Escalation of care including admission/observation considered Patient would have been admitted to the hospital had his work up had any findings where hospital admission was appropriate and his clinical presentation warranted hospital admission. Prescription Management I considered prescription management with: Antibiotic (patient prescribed antibiotics to cover for MRSA type cellulitis of the bilateral 5th, 4th, and 3rd toes.) Discharge Plan Discharge Clinical Impression: Athlete's foot, Cellulitis, toe Patient Disposition: Home, Self-Care Instructions: Athlete's Foot (ED), Cellulitis (DC), Skin Yeast Infection (ED) Additional Instructions: Keep your feet clean and dry / well covered. This includes regularly changing your socks and keeping your socks clean and dry. If you decide you want help with your opiate use / abuse, [facility] Follow up with your primary care provider. Return to the emergency department immediately if your symptoms worsen or if you develop any dizziness, shortness of breath, difficulty breathing, chest pain, blurry vision, loss of vision, nausea, vomiting, abdominal pain, fever, chills, back pain, or any other complaints. Prescriptions: New fluconazole 150 mg tablet 150 mg PO Q3D Qty: 1 0RF Rx Instructions: Take on 06/07/2024 cephalexin 500 mg capsule 500 mg PO Q6H 7 Days Qty: 28 0RF doxycycline hyclate 100 mg tablet 100 mg PO BID 7 Days Qty: 14 0RF No Action cephalexin 500 mg capsule 500 mg PO QID 7 Days Qty: 28 0RF cephalexin 500 mg capsule 500 mg PO BID 10 Days Qty: 20 0RF prednisone 20 mg tablet 40 mg PO DAILY 5 Days Qty: 10 0RF ibuprofen 600 mg tablet 600 mg PO Q6H PRN (Reason: pain) Qty: 30 0RF Referrals: [facility] [Provider Group] (If you decide you'd like help with your opiate use / abuse, please call to establish and follow up with the comprehensive care center. ) [facility] [Provider Group] (Call to establish and follow up with a primary care provider. If you already have a primary care provider, please follow up with them.) [facility] [Provider Group] (Call to establish and follow up with a primary care provider. If you already have a primary care provider, please follow up with them.) [facility] [Provider Group] (Call to establish and follow up with a primary care provider. If you already have a primary care provider, please follow up with them.) Interventions: ED Discharge Assessment Last Done: 06/04/24 13:04 Discharge Date/Time: 06/04/24 13:16 Print Language: Hungarian
[2024-06-04 12:17] VITALS: BP 134/99; PULSE 82; RESP 18; TEMP 36.8; O2SAT 97; BMI 25.8
[2024-06-04] MEDS: cephALEXin 500 MG CAPSULE PO (12:28)
[2024-06-04] MEDS: Nystatin Powder 15 GM BOTTLE 1 APPL TOPICAL (12:28)
[2024-06-04] MEDS: Doxycycline Monohydrate 100 MG CAPSULE PO (12:28)
[2024-06-04] MEDS: Fluconazole 150 MG TABLET PO (12:28)
[2024-06-04 13:04] VITALS: BP 134/99; PULSE 82; RESP 18; TEMP 36.8; O2SAT 97
== END 2024-06-04 13:16 | disposition home or self-care (01) ==
PROVIDERS: Emergency Provider Emergency Medicine Emergency Medical Services
DX: B35.3 Tinea pedis (principal); L03.032 Cellulitis of left toe; L03.031 Cellulitis of right toe
CPT/HCPCS: 99282; 99284

== ENCOUNTER 2024-06-20 22:55 | Emergency (ER) | payer OTHER, SELFPAY ==
[2024-06-20 23:09] VITALS: BP 117/66; PULSE 77; RESP 18; TEMP 36.4; O2SAT 98; BMI 23.9
[2024-06-21 00:01] VITALS: BP 117/53; PULSE 70; RESP 15; TEMP 37; O2SAT 97
[2024-06-21] MEDS: Ibuprofen 600 MG TABLET PO (00:21)
--- NOTE | 2024-06-21 00:40 | ECG_ITS ---
Test Reason : check qtc Blood Pressure : / mmHG Vent. Rate : 066 BPM Atrial Rate : 066 BPM P-R Int : 108 ms QRS Dur : 104 ms QT Int : 390 ms P-R-T Axes : 029 047 015 degrees QTc Int : 408 ms Sinus rhythm with short DC Otherwise normal ECG When compared with ECG of 10-DEC-2022 12:48, No significant change was found Referred By: Alessandro Bocanegra Electronically Signed By:Serafin Hope
--- NOTE | 2024-06-21 01:03 | ED_ITS ---
HPI - General Adult General Chief complaint: General Medical Stated complaint: Methadone refill Time Seen by Provider: 06/21/24 00:32 Source: patient, RN notes reviewed and old records reviewed Mode of arrival: ambulatory Limitations: no limitations History of Present Illness ED Provider: Sahra HUDSON narrative: 28-year-old male past medical history significant for substance abuse presents for ?withdrawal. ? Patient reports he is interested in getting to detox. He reports that he was released from long term over a month ago. He was receiving methadone 75 mg daily while in long term. His last methadone dose was on 05/18/2024 Since being released from [facility], he has been using ?a bundle of heroin or more per day. ? He reports nausea, shakes, weakness and abdominal pain He last used heroin about 6 hours ago Related Data Previous Rx's ?Medication ?Instructions ?Recorded cephalexin 500 mg capsule 500 mg PO QID 7 days #28 caps 03/10/22 cephalexin 500 mg capsule 500 mg PO BID 10 days #20 caps 03/28/22 ibuprofen 600 mg tablet 600 mg PO Q6H PRN pain #30 tabs 04/23/24 prednisone 20 mg tablet 40 mg (2 x 20 mg) PO DAILY 5 days 04/23/24 #10 tabs cephalexin 500 mg capsule 500 mg PO Q6H 7 days #28 caps 06/04/24 doxycycline hyclate 100 mg tablet 100 mg PO BID 7 days #14 tabs 06/04/24 fluconazole 150 mg tablet 150 mg PO Q3D 1 dose #1 tab 06/04/24 Allergies Allergy/AdvReac Type Severity Reaction Status Date / Time trazodone Allergy Palpitation Verified 06/20/24 23:14 s Review of Systems 2 Constitutional: Constitutional: Denies body ache(s), Reports chills, Denies fever(s) and Denies frequent falls Eyes: Eyes: Denies blurry vision ENT: Denies vertigo and Denies dizziness Cardiovascular: Cardiovascular: Denies chest pain Respiratory: Respiratory: Denies cough Gastrointestinal: Gastrointestinal: Reports abdominal pain, Reports nausea and Denies vomiting Musculoskeletal: Musculoskeletal: Denies back pain Integumentary/Breasts: Skin/Breast: Denies rash Neurologic: Denies vertigo, Denies dizziness and Denies frequent falls Psychiatric: Psychiatric: Denies anxiety and Denies suicidal ideation [facility] Past Medical History Medical History MRSA infection Social History Social History Alcohol intake: former Patient Tobacco Use Status: Current everyday Tobacco user Smoked in Last 30 Days: Yes Substance Use Type: Crack/Cocaine and Heroin Substance Use Frequency: Chronic Longstanding Last Used Substance: Hours (ago) Any prior treatment program specific to substance use: Yes Advance Directives: No Advance Directives Information Provided: Yes Do you have a plan to hurt others: No Plan Physical Exam ED Vital Signs: Vital Signs - 24 hr 06/20/24 23:09 06/21/24 00:01 Temperature 97.6 F 98.6 F Pulse Rate 77 70 Respiratory Rate 18 15 Blood Pressure 117/66 117/53 L Pulse Oximetry 98 97 Oxygen Delivery Method Room Air Room Air BMI result Body Mass Index 23.9 Const General: healthy appearing, comfortable, no acute distress, alert and awake Nutritional Appearance: well nourished Orientation/consciousness: patient oriented x3 HENMT Head: Yes normocephalic and Yes atraumatic Eyes Eyelids: Yes eyelids normal Conjunctivae: conjunctivae normal Sclerae: sclerae normal Corneas: corneas normal Pupils: Equal, round and reactive pupils present EOM: EOMs intact bilaterally Neck Neck: Yes full ROM Resp Effort & Inspection: normal respiratory effort, able to speak in complete sentences and not labored GI Inspection: No distended Palpation (GI): Soft to palpation, not firm, nontender, no guarding and not rigid Skin General skin exam: elasticity normal Neuro General: patient oriented x3 Cranial nerves: Yes Equal, round and reactive pupils present and Yes Bilaterally intact EOM present Cognition (Neuro): normal cognition Extrem Other: Moving all extremities well without any obvious deformities Medications Administered Discontinued Medications Generic Name Dose Route Start Last Admin Trade Name Freq PRN Reason Stop Dose Admin Ibuprofen 600 mg 06/21/24 00:08 06/21/24 00:21 Ibuprofen 600 Mg Tablet PO 06/21/24 00:09 600 mg ONCE ONE Administration Medical Decision Making Medical Decision Making MDM Narrative: 28-year-old male presents for evaluation of substance abuse and withdrawal symptoms. The patient does not appear to have a severe degree of withdrawal but also does not appear actively intoxicated. We will check basic labs, EKG and give him a dose of methadone, 40 mg, about half of his previous maintenance dose and he will be given outpatient referrals to numerous substance abuse clinics. Given that it is [place] and a holiday, we do not any detox resources available today. Differential Diagnosis Differential Diagnoses: The differential diagnosis associated with the presentation includes Substance abuse Polysubstance abuse Opiate abuse Opiate withdrawal Viral syndrome Lab Data 06/21/24 01:01 06/21/24 01:01 Discharge Plan Discharge Clinical Impression: Opiate abuse, continuous Patient Disposition: Home, Self-Care Instructions: Opioid Withdrawal (ED), Opioid Use Disorder (ED) Additional Instructions: Your blood work in the ER today was reassuring. Your EKG today showed a QT of 390 and a QTC of 408 Follow up with detox facilities and at the list provided Return for new or worsening symptoms Prescriptions: No Action cephalexin 500 mg capsule 500 mg PO QID 7 Days Qty: 28 0RF cephalexin 500 mg capsule 500 mg PO BID 10 Days Qty: 20 0RF prednisone 20 mg tablet 40 mg PO DAILY 5 Days Qty: 10 0RF ibuprofen 600 mg tablet 600 mg PO Q6H PRN (Reason: pain) Qty: 30 0RF fluconazole 150 mg tablet 150 mg PO Q3D Qty: 1 0RF Rx Instructions: Take on 06/07/2024 cephalexin 500 mg capsule 500 mg PO Q6H 7 Days Qty: 28 0RF doxycycline hyclate 100 mg tablet 100 mg PO BID 7 Days Qty: 14 0RF Print Language: Croatian
[2024-06-21 01:05] LABS: MANUAL DIFF FLAG NO
[2024-06-21] MEDS: methADONE HCl 20 MG/2 ML ORAL.CONC 40 MG PO (01:12)
[2024-06-21 01:18] LABS: Basophils Percent Auto 0.2 % (0-2); Eosinophils Percent Auto 0.2 % (0-4); Hematocrit 33.2 % (42.0-52.0); Hemoglobin 11.3 g/dl (14.0-18.0); Imm Gran Abs Auto 0.02 X10*3/uL (0.00-0.03); Imm Gran Pct Auto 0.4 % (0.0-0.4); Lymphocytes Absolute Auto 0.6 X10*3/uL (1.2-4.9); Lymphocytes Percent Auto 11.9 % (20-40); Mean Corpuscular Hemoglobin 28.8 pg (27.0-33.0); Mean Corpuscular Volume 84.5 fL (80.0-98.0); Mean Platelet Volume 10.2 fL (9.4-12.4); Monocytes Absolute Auto 0.4 X10*3/uL (0.1-1.2); Monocytes Percent Auto 7.5 % (2-11); Neutrophils Absolute Auto 3.8 x10*3/uL (2.0-8.3); Neutrophils Percent Auto 79.8 % (45-73); Platelet Count 112 X10*3/uL (160-400); Red Blood Count 3.93 X10*6/uL (4.60-5.80); Red Cell Distribution Width 12.8 % (11.0-16.0); White Blood Count 4.8 X10*3/uL (4.8-10.8)
[2024-06-21 01:19] LABS: Alanine Aminotransferase 119 U/L (0-40); Albumin Level 3.6 g/dL (3.5-5.0); Alkaline Phosphatase 62 U/L (39-117); Anion Gap 11 (12-20); Aspartate Amino Transferase 71 U/L (5-37); Bilirubin Total 0.6 mg/dL (0.0-1.0); Blood Urea Nitrogen 28 mg/dL (9-16); Calcium 8.4 mg/dL (8.4-10.2); Carbon Dioxide 27 mmol/L (22-29); Chloride 100 mmol/L (96-108); Creatinine Clr Calc Pharmacy 116.1; Estimated Glomerular Filt Rate > 60; Glucose Random 116 mg/dL (60-115); Potassium 4.1 mmol/L (3.3-5.1); Sodium 134 mmol/L (135-145); Total Protein 6.1 g/dL (6.5-8.0)
[2024-06-21 01:29] VITALS: BP 117/53; PULSE 70; RESP 15; TEMP 37; O2SAT 97
[2024-06-21 05:28] LABS: Amphetamine Screen Urine Not Detected (Not Detect); Barbiturates, Urine Not Detected (Not Detect); Benzodiazepines Screen Urine Not Detected (Not Detect); Buprenorphine Scr Not Detected (Not Detect); Cannabinoid Screen Urine Not Detected (Not Detect); Cocaine Screen Urine POSITIVE (Not Detect); Fentanyl, urine POSITIVE (Not Detect); Methadone Screen, Urine Positive (Not Detect); Opiate Screen Urine Not Detected (Not Detect); Oxycodone Screen Urine Not Detected (Not Detect); Phencyclidine Screen Urine Not Detected (Not Detect)
== END 2024-06-21 06:09 | disposition home or self-care (01) ==
PROVIDERS: Physician Assistant; Emergency Provider Internal Medicine
DX: F11.23 Opioid dependence with withdrawal (principal); R11.0 Nausea; R10.2 Pelvic and perineal pain; F14.10 Cocaine abuse, uncomplicated; R94.31 Abnormal electrocardiogram [ECG] [EKG]; Z51.81 Encounter for therapeutic drug level monitoring; Z79.899 Other long term (current) drug therapy
CPT/HCPCS: 36415; 80053; 80307; 85025; 93005; 99284; 99285

== ENCOUNTER → 2024-06-21 00:40 | Outpatient (BNV) | payer OTHER, SELFPAY | PROVIDERS: Emergency Provider Internal Medicine; Visit Provider Internal Medicine Cardiovascular Disease | DX: I49.8 Other specified cardiac arrhythmias (principal) | CPT/HCPCS: 93010 ==

== ENCOUNTER 2024-06-28 22:57 | Emergency (ER) | payer OTHER, SELFPAY ==
[2024-06-28 23:00] VITALS: BP 136/85; PULSE 77; RESP 20; TEMP 36.6; O2SAT 100; BMI 24.4
--- NOTE | 2024-06-28 23:42 | PC.NURSE ---
this rn assumed care of pt, pt given warm blanket at this time. 1:1 sitter at bedside, no acute distress noted.
--- NOTE | 2024-06-28 23:43 | PC.NURSE ---
pt a&ox3, respirations even and unlabored. pt reports he would like to be put back on methadone, he reports he was seen here and was supposed to go to the clinic on [facility] but they were closed. pt reports he last used 8 hours ago and feels like he is withdrawing. pt reports he last used heroin 8 hours ago. pt reporting anxiety. denies si/hi. security at bedside for chnage over, pt refusing to exchange mechanic at this time. fire engine pump operator at bedside. pt continuing to refuse to exchange mechanic and states im going to [facility] , pt walked out of ed by security.
--- NOTE | 2024-06-28 23:52 | PC.NURSE ---
Pt refusing to change into hospital attire, states hes leaving and going to [facility], [facility] aware.
== END 2024-06-29 00:26 | disposition left against medical advice (07) ==
PROVIDERS: Emergency Provider Emergency Medicine
DX: F11.20 Opioid dependence, uncomplicated (principal); F41.9 Anxiety disorder, unspecified; Z53.21 Procedure and treatment not carried out due to patient leaving prior to being seen by health care provider
CPT/HCPCS: 99284

== ENCOUNTER 2024-07-15 22:57 | Emergency (ER) | payer OTHER, SELFPAY ==
--- NOTE | 2024-07-15 23:15 | PC.NURSE ---
pt in bathroom since arrival, called 2x for triage.
[2024-07-15 23:22] VITALS: BP 96/50; PULSE 63; RESP 16; TEMP 36.6; O2SAT 95; BMI 25.1
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
[2024-07-16] MEDS: Lidocaine HCl 1%/Epi 1:100,000 10 ML VIAL INFILTRATI (03:11)
[2024-07-16 03:33] VITALS: BP 116/53; PULSE 60; RESP 14; TEMP 36.4; O2SAT 98
== END 2024-07-16 03:34 | disposition home or self-care (01) ==
PROVIDERS: Emergency Provider Emergency Medicine
DX: S01.511A Laceration without foreign body of lip, initial encounter (principal); V19.9XXA Pedal cyclist (driver) (passenger) injured in unspecified traffic accident, initial encounter; Y93.89 Activity, other specified; Y92.488 Other paved roadways as the place of occurrence of the external cause; Y99.8 Other external cause status; F17.210 Nicotine dependence, cigarettes, uncomplicated
CPT/HCPCS: 12053; 99283; 99284; J2004

== ENCOUNTER 2025-05-22 01:19 | Emergency (ER) | payer OTHER, SELFPAY ==
[2025-05-22 01:20] VITALS: BP 114/59; PULSE 58; RESP 20; TEMP 36.2; O2SAT 99; BMI 25.8
--- OUTSIDE RECORDS SUMMARY | 2025-05-22 01:55 | XMS_ITS | Clinical Summary ---
Author Organization [facility] ity Address [address] [place] [address] Care Team Providers Care Secondary Special Education Teacher Name Role Phone Unavailable Primary Care Provider Unavailabl e Social History Tobacco Use Types Packs/Day Years Used Date Smoking Tobacco: Never Assessed Sex and Gender Information Value Date Recorded Sex Assigned at Not on file Legal Sex Male 4:00 PM EST Gender Identity Not on file Sexual Orientation Not on file Plan of Treatment Health Maintenance Due Date Last Done Comments DTaP,Tdap,and Td Vaccines (1 - Tdap) 2012 Hepatitis B Vaccines (1 of 3 - 19+ 3-dose series) 2012 HPV Vaccines (1 - 3-dose SCD M series) 2020 HIV Screening 02/21/2024 Hepatitis C Screening 02/21/2024 Social Influencers of Health Screening 02/21/2024 Depression Screening 06/28/2024 COVID-19 Vaccine (1 - 2024-2 6 season) 2025 Influenza Vaccine (#1) 2025 RSV Immunization Adult Patie nts (1 - 1-dose 75+ series) 2068 HIB Vaccines Aged Out No longer eligi ble based on patient's age to complete this topic Hepatitis A Vaccines Aged Out No long er eligible based on patient's age to complete this topic IPV Vaccines Aged Out No longer eligi ble based on patient's age to complete this topic MMR Vaccines Aged Out No longer eligi ble based on patient's age to complete this topic Meningococcal ACWY Vaccine Aged Out N o longer eligible based on patient's age to complete this topic Meningococcal B Vaccine Aged Out No l onger eligible based on patient's age to complete this topic Pneumococcal Vaccine: Pediat rics (0 to 5 Years) and At-Risk Patients (6 to 49 Years) Aged Out No longer eligible b ased on patient's age to complete this topic RSV Immunization Patients Un fili 20 months Aged Out No longer eligible b ased on patient's age to complete this topic Varicella Vaccines Aged Out No longer eligible based on patient's age to complete this topic
--- OUTSIDE RECORDS SUMMARY | 2025-05-22 01:55 | XMS_ITS | Clinical Summary ---
Author Organization [facility] Address [address] [place] [address] Care Team Providers Care Machine Clipper Name Role Phone Pcp, No Primary Care Provider Unavailabl e Allergies No known active allergies Social History Tobacco Use Types Packs/Day Years Used Date Smoking Tobacco: Never Assessed Sex and Gender Information Value Date Recorded Sex Assigned at Not on file Legal Sex Male 7:17 PM EST Gender Identity Not on file Sexual Orientation Not on file Last Filed Vital Signs Vital Sign Reading Time Taken Comments Blood Pressure 128/84 07/21/2020 7:19 PM EST Pulse 103 07/21/2020 7:19 PM EST Temperature 35.9 C (96.7 F) 07/21/2020 7:19 PM EST Respiratory Rate 18 07/21/2020 7:19 PM EST Oxygen Saturation 98% 07/21/2020 7:19 PM EST Inhaled Oxygen Concentration - - Weight - - Height - - Body Mass Index - - Plan of Treatment Health Maintenance Due Date Last Done Comments Hepatitis C Virus Screening 1993 HIV Screening 2006 DTaP/Tdap/Td Vaccines (1 - Tdap) 2012 Hepatitis B Vaccines (1 of 3 - 19+ 3-dose series) 2012 Influenza Vaccine 01/26/2025 COVID-19 Vaccine (2023-2 5 season) 2025 HPV Vaccines (No Doses Required) Completed Pneumococcal Vaccine: Pediat elina (0-5 Years) and At-Risk Patients (6 to 49 Years) Aged Out No longer eligible b ased on patient's age to complete this topic Insurance [facility] Care Teams Machine Clipper Relationship Specialty Start Date End Date Pcp, No PCP - General General Medicine 07/21/20
--- NOTE | 2025-05-22 02:02 | PC.NURSE ---
pt from triage reported he has been off methadone for 1 month and has relapsed to fentanyl IV use and cocaine use. PT denies SI and was changed over by security with belongings in [facility]. SHAHRZAD jang at bedside.
[2025-05-22 02:24] LABS: MANUAL DIFF FLAG NO
[2025-05-22 02:25] LABS: Hematocrit 32.8 % (42.0-52.0); Hemoglobin 11.3 g/dl (14.0-18.0); Imm Gran Abs Auto 0.01 X10*3/uL (0.00-0.03); Imm Gran Pct Auto 0.2 % (0.0-0.4); Lymphocytes Absolute Auto 1.7 X10*3/uL (1.2-4.9); Mean Corpuscular HGB Conc 34.5 g/dl (31.0-36.0); Mean Corpuscular Hemoglobin 28.0 pg (27.0-33.0); Mean Corpuscular Volume 81.4 fL (80.0-98.0); NRBC Abs Auto 0.000 X10*3/uL (0.0-0.012); NRBC Pct Auto 0.0 /100WBC (0.0-0.2); Platelet Count 156 X10*3/uL (160-400); Red Blood Count 4.03 X10*6/uL (4.60-5.80); White Blood Count 4.9 X10*3/uL (4.8-10.8)
[2025-05-22 02:41] LABS: Alanine Aminotransferase 46 U/L (0-40); Albumin Level 4.2 g/dL (3.5-5.0); Alkaline Phosphatase 76 U/L (39-117); Anion Gap 12 (12-20); Aspartate Amino Transferase 46 U/L (5-37); Blood Urea Nitrogen 22 mg/dL (9-16); Calcium 8.5 mg/dL (8.4-10.2); Carbon Dioxide 25 mmol/L (22-29); Chloride 106 mmol/L (96-108); Creatinine Clr Calc Pharmacy 90.5; Estimated Glomerular Filt Rate > 60; Magnesium 1.9 mg/dL (1.6-2.6); Potassium 4.2 mmol/L (3.3-5.1); Sodium 139 mmol/L (135-145); Total Protein 6.6 g/dL (6.5-8.0)
[2025-05-22 03:35] VITALS: RESP 20; O2SAT 95
--- NOTE | 2025-05-22 05:23 | ED_ITS ---
HPI - General Adult General Chief complaint: General Medical Stated complaint: failure to dose methadone Time Seen by Provider: 05/22/25 01:55 Source: patient Limitations: no limitations History of Present Illness ED Provider: Lucia Akins PA-C HPI narrative: 29-year-old male with a history of polysubstance abuse, presents requesting detox. Patient states he wants to get back on his methadone, he has been off it for 1 month. Denies SI or HI. Related Data Home Medications ?Medication ?Instructions ?Recorded ?Confirmed aripiprazole 5 mg tablet 5 mg PO QAM 05/22/25 5 baclofen 10 mg tablet 10 mg PO TID 05/22/25 mirtazapine 7.5 mg tablet 7.5 mg PO BEDTIME 05/22/25 1 07/22/24 nicotine (polacrilex) 4 mg buccal 4 mg PO Q2H PRN Lloyd anthony Cravings 05/22/25 05/22/25 lozenge Allergies Allergy/AdvReac Type Severity Reaction Status Date / Time trazodone Allergy Palpitation Verified 05/22/25 01:23 s Review of Systems 2 Review of Systems: Yes all other systems are reviewed and are negative Constitutional: Constitutional: Denies fatigue and Denies fever(s) Cardiovascular: Cardiovascular: Denies chest pain and Denies dyspnea Respiratory: Respiratory: Denies dyspnea Gastrointestinal: Gastrointestinal: Denies abdominal pain, Denies diarrhea and Denies nausea Endocrine: Endocrine: Denies fatigue PMFSH Past Medical History Attestation statement: The following information was validated with the patient. Medical History MRSA infection Social History Social History Alcohol intake: never Patient Tobacco Use Status: Current everyday Tobacco user Smoked in Last 30 Days: Yes Use of substances other than those prescribed or required for medical reasons: Yes Substance Use Type: Crack/Cocaine and Other Substance Use Type Other:: fentanyl Substance Use Frequency: Daily Last Used Substance: Hours (ago) Advance Directives: No Advance Directives Information Provided: Yes Physical Exam ED Vital Signs: Vital Signs - 24 hr 05/22/25 01:20 05/22/25 03:35 05/22/25 06:07 Temperature 97.1 F 98.2 F Pulse Rate 58 53 Respiratory Rate 20 20 Blood Pressure 114/59 L 115/52 L Pulse Oximetry 99 95 99 Oxygen Delivery Method Room Air Room Air Room Air 05/22/25 06:30 05/22/25 10:00 Temperature 97.2 F 97.2 F Pulse Rate 56 56 Respiratory Rate 18 18 Blood Pressure 125/62 125/62 Pulse Oximetry 100 Oxygen Delivery Method Room Air BMI result Body Mass Index 25.8 Const Other: awake, appears older than stated age Orientation/consciousness: patient oriented x3 Eyes Other: pinpoint pupil Resp Effort & Inspection: normal respiratory effort Cardio Other: normal peripheral perfusion Skin Other: warm dry no rash Neuro General: patient oriented x3, gait normal, no focal motor deficits and CN's II- XI intact bilaterally Psych Other: somewhat uncooperative Course Reevaluation(s) Reevaluation #1: Time: 05:26 Date: 05/22/25 Provider: SHAHRZAD Muñoz Patient in physician observation for psychiatric evaluation.? No acute events reported overnight. No current complaints. VS stable.? pending recovery team evaluation. Will continue to monitor. Waiting on recovery at this time. Unchanged over it was noted that the patient had drugs and drug paraphernalia in his rectal area that fell out. All materials were confiscated by security. Reevaluation #2: Time: 09:58 Date: 05/22/25 Provider: Marilyn Hamm DO Physician observation ended at 09:58. Patient has been cleared for discharge by the CARE team. Patient was able to be accepted at [facility] Medical Decision Making Medical Decision Making MDM Narrative: 29-year-old male with a history of polysubstance abuse, presents requesting detox. Patient states he wants to get back on his methadone, he has been off it for 1 month. Denies SI or HI. Problem: Polysubstance abuse History: Per patient I have considered the following differential diagnoses: SI, HI, decompensated psychiatric illness, drug / alcohol intoxication Plan: We will be screening broad labs including serum ethanol and drug screen. The patient had large amounts of illicit substances and paraphernalia on his person when he had a safety check by security. he was somewhat uncooperative during this process. We will place a consult with a transit coach operator. I have independently reviewed the following tests: Labs: No leukocytosis, not anemic, no electrolyte abnormality, ethanol less than 10, drug screen pending Differential Diagnosis Differential Diagnoses: The differential diagnosis associated with the presentation includes see MDM Admission/Observation Consideration of admission/observation: Escalation of care including admission/observation considered Consult Healthcare Provider Management of the patient was discussed with: Retail And Restaurant Associate transit coach operator Lab Data [facility] Lab Attestation statement: I reviewed the patient's lab results. 05/22/25 02:19 05/22/25 02:19 Labs: Lab Results 05/22/25 05/22/25 Range/Units 02:19 06:41 WBC 4.9 (4.8-10.8) X10*3/uL RBC 4.03 L (4.60-5.80) X10*6/uL Hgb 11.3 L (14.0-18.0) g/dl Hct 32.8 L (42.0-52.0) % MCV 81.4 (80.0-98.0) fL MCH 28.0 (27.0-33.0) pg MCHC 34.5 (31.0-36.0) g/dl RDW 12.8 (11.0-16.0) % Plt Count 156 L D (160-400) X10*3/uL MPV 9.7 (9.4-12.4) fL Immature Gran % (Auto) 0.2 (0.0-0.4) % Neut % (Auto) 55.7 (45-73) % Lymph % (Auto) 34.2 (20-40) % Clinton % (Auto) 8.5 (2-11) % Eos % (Auto) 1.0 (0-4) % Baso % (Auto) 0.4 (0-2) % Lymph # (Auto) 1.7 (1.2-4.9) X10*3/uL Clinton # (Auto) 0.4 (0.1-1.2) X10*3/uL Eos # (Auto) 0.1 (0.0-0.4) X10*3/uL Baso # (Auto) 0.0 (0.0-0.2) X10*3/uL Abs Immat Gran (auto) 0.01 (0.00-0.03) X10*3/uL Absolute Neuts (auto) 2.8 (2.0-8.3) x10*3/uL Absolute Nucleated RBC 0.000 (0.0-0.012) X10*3/uL Nucleated RBC % (auto) 0.0 (0.0-0.2) /100WBC Sodium 139 (135-145) mmol/L Potassium 4.2 (3.3-5.1) mmol/L Chloride 106 (96-108) mmol/L Carbon Dioxide 25 (22-29) mmol/L Anion Gap 12 (12-20) BUN 22 H (9-16) mg/dL Creatinine 1.22 (0.5-1.4) mg/dL Estim Creat Clear Calc 90.5 Estimated GFR > 60 Random Glucose 119 H (60-115) mg/dL Calcium 8.5 (8.4-10.2) mg/dL Magnesium 1.9 (1.6-2.6) mg/dL Total Bilirubin 0.4 (0.0-1.0) mg/dL AST 46 H (5-37) U/L ALT 46 H (0-40) U/L Alkaline Phosphatase 76 (39-117) U/L Total Protein 6.6 (6.5-8.0) g/dL Albumin 4.2 (3.5-5.0) g/dL Urine Opiates Screen POSITIVE H (Not Detect) Ur Buprenorphine Scrn Not Detected (Not Detect) ng/mL Ur Oxycodone Screen Not Detected (Not Detect) ng/mL Urine Methadone Screen Not Detected (Not Detect) ng/mL Urine Fentanyl Screen POSITIVE H (Not Detect) Ur Barbiturates Screen Not Detected (Not Detect) Ur Phencyclidine Scrn Not Detected (Not Detect) Ur Amphetamines Screen Not Detected (Not Detect) U Benzodiazepines Scrn Not Detected (Not Detect) Urine Cocaine Screen POSITIVE H (Not Detect) U Marijuana (THC) Screen Not Detected (Not Detect) Ethyl Alcohol < 10 mg/dL Discharge Plan Discharge Clinical Impression: Polysubstance abuse Patient Disposition: Home, Self-Care Instructions: Polysubstance Use Disorder (ED) Additional Instructions: Opiate use disorder You were seen in our Emergency Department today for treatment of opiate use disorder. You may have been dosed with medication for opiate use disorder (MOUD) in the form of suboxone or methadone. You may experience feeling some withdrawal symptoms and this is normal. The? dose in the Emergency Department is a starting dose and meant to be titrated up once you follow up with a clinic. Please do not feel discouraged, it is a process. The nurse has reviewed with you where to follow up and what information to bring with you, to continue treatment. You also may have been given naloxone (narcan) to take home with you. This medication is used to potentially treat opiate overdose. If you decide you want to stop or cut down on how much you?re using, you can call or walk into our outpatient Addiction Treatment office: [facility] (M-F 9am-5p) [address] [place] [address], [phone] You may have been provided with safer injection?items, please take time to take care of YOU and your health. Use new supplies whenever possible to lessen the chances of infections and other illnesses.? ?If you need more supplies, please go [facility],? [address] [place] [address] [place] you can call or text to coordinate delivery of safer supplies. You were also provided a list of several treatment providers in the area.? If you experience any worsening symptoms you cannot control please return to the ED or call 911. Please follow up at your next appointment. Things to look out for are fevers, chest pain, shortness of breath, severe pain, dizziness, fainting or any other concerns. You were seen in our Emergency Department today for treatment of a behavioral health issue. It is important after your visit that you follow up with either your behavioral health provider or a primary care doctor within 7 days.? If you have trouble finding a therapist you can reach out to [address] [phone] The National Suicide and Crisis Lifeline can be reached 7 days a week 24 hours a day.? Call 358 to speak with someone.? Return for any worsening symptoms or concerns such as thoughts of self harm or harm to others. Please call 911 if you feel your mental health is worsening.? Prescriptions: No Action baclofen 10 mg tablet 10 mg PO TID aripiprazole 5 mg tablet 5 mg PO QAM mirtazapine 7.5 mg tablet 7.5 mg PO BEDTIME nicotine (polacrilex) 4 mg lozenge 4 mg PO Q2H PRN (Reason: Nicotine Cravings) Interventions: ED Discharge Assessment Last Done: 05/22/25 10:00 Discharge Date/Time: 05/22/25 10:11 Print Language: Bengali
[2025-05-22 06:07] VITALS: BP 115/52; PULSE 53; TEMP 36.8; O2SAT 99
--- NOTE | 2025-05-22 06:24 | MHC.EDTECH ---
Addendum entered by Charis Ghosh 05/22/25 06:31: pt came to the POD with cookies in plastic container. immediately thrown out once in pod. Original Note: pt walked over with it security architect Jc, workplace rehabilitation officer Jc handed t/w drugs that fell out of the patients pants during the second meter changes records clerk. drugs were wasted/ CC notified/FATBACK TRIMMER AWARE. POD RN AWARE.
[2025-05-22 06:30] VITALS: BP 125/62; PULSE 56; RESP 18; TEMP 36.2; O2SAT 100
--- NOTE | 2025-05-22 06:39 | PC.NURSE ---
Pt arrived to pod room 8, assumed care of pt. Pt ambulated in pod with steady gait. Pt arrived to the ED seeking out detox services. Pt admits to relapsing on fentanyl and cocaine. Pt denies SI/HI at this time. Pt provied with snacks and sandwich. Urine sample obtained and sent to lab. Pt now resting quietly and watching TV. All needs met at this time.
[2025-05-22 06:56] LABS: Cannabinoid Screen Urine Not Detected (Not Detect)
[2025-05-22 10:00] VITALS: BP 125/62; PULSE 56; RESP 18; TEMP 36.2
== END 2025-05-22 10:11 | disposition home or self-care (01) ==
PROVIDERS: Physician Assistant Medical; Emergency Provider Emergency Medicine
DX: F19.10 Other psychoactive substance abuse, uncomplicated (principal); Z79.899 Other long term (current) drug therapy
CPT/HCPCS: 36415; 80053; 80307; 83735; 85025; 99283; 99284; S9485

== ENCOUNTER 2025-06-13 18:04 | Emergency (ER) | payer OTHER, SELFPAY ==
--- NOTE | 2025-06-13 18:21 | ED_ITS ---
HPI - General Adult General Chief complaint: Extremity Problem Stated complaint: Toe pain swelling pain when walking Time Seen by Provider: 06/13/25 18:29 Source: patient, RN notes reviewed and old records reviewed Mode of arrival: ambulatory Limitations: no limitations History of Present Illness ED Provider: Obdulio HPI narrative: Patient is a 29y/o M with pmhx MRSA and polysubstance abuse presenting to the ED with complaint of left great toe pain at MTP joint with redness for the past 2 days. History of same in the past. Family history of gout. Pain worse with ambulation. Denies fevers. States has these symptoms intermittently. Denies injury to area. MD complaint: toe pain Onset (ago): day(s) Related Data Home Medications ?Medication ?Instructions ?Recorded ?Confirmed aripiprazole 5 mg tablet 5 mg PO QAM 05/22/25 5 baclofen 10 mg tablet 10 mg PO TID 05/22/25 mirtazapine 7.5 mg tablet 7.5 mg PO BEDTIME 05/22/25 1 07/22/24 nicotine (polacrilex) 4 mg buccal 4 mg PO Q2H PRN Lloyd anthony Cravings 05/22/25 05/22/25 lozenge Previous Rx's ?Medication ?Instructions ?Recorded ibuprofen 600 mg tablet 600 mg PO Q6H PRN pain #20 t abs 06/13/25 prednisone 20 mg tablet 40 mg (2 x 20 mg) PO DAILY 5 days 06/13/25 #10 tabs Allergies Allergy/AdvReac Type Severity Reaction Status Date / Time ondansetron (From Zofran) Allergy Unknown Verified 06/13/25 18:23 trazodone Allergy Palpitation Verified 06/13/25 18:23 s Review of Systems Review of Systems: as per hpi Yes all other systems are reviewed and are negative Constitutional: Constitutional: Reports as per HPI [facility] Past Medical History Medical History MRSA infection Social History Social History Alcohol intake: never Patient Tobacco Use Status: Current everyday Tobacco user Substance Use Type: Crack/Cocaine and Other Physical Exam ED Vital Signs: Vital Signs - 24 hr 06/13/25 18:22 Temperature 98.4 F Pulse Rate 72 Respiratory Rate 16 Blood Pressure 174/98 H Pulse Oximetry 97 Oxygen Delivery Method Room Air BMI result Body Mass Index 25.8 Vital signs have been reviewed and appear to be correct. Blood pressure elevated. Heart rate normal. Respiratory rate normal. Temperature normal. Oxygen saturation normal. Const General: cooperative, healthy appearing and no acute distress Orientation/consciousness: oriented to person, oriented to place, oriented to time and patient oriented x3 Limitations: no limitations HENMT Head: Yes normocephalic and Yes atraumatic Ears: external ears normal General nose exam: Normal external nose present Face and sinus: Yes face symmetric Mouth: oropharynx normal and moist mucous membranes Throat: Yes uvula midline Eyes Pupils: Equal, round and reactive pupils present Neck Neck: Yes normal visual inspection and Yes supple Resp Effort & Inspection: normal respiratory effort and able to speak in complete sentences Auscultation: clear to auscultation bilaterally Cardio Rate: regular rate Rhythm: regular rhythm Heart sounds: S1 normal heart sound present and S2 normal heart sound present GI Palpation (GI): Soft to palpation and nontender Auscultation: normoactive bowel sounds General: Yes no CVA tenderness Back/Spine/Pelvis Back: no CVA tenderness Skin General skin exam: elasticity normal and turgor normal Neuro General: oriented to person, oriented to place, oriented to time, patient oriented x3, moves all extremities, no focal motor deficits and CN's II-XI intact bilaterally Cranial nerves: Yes Equal, round and reactive pupils present Cognition (Neuro): normal cognition Extrem General: Yes full ROM, Yes no pedal edema and Yes no calf tenderness Left lower extremity: foot Details: normal capillary refill, tenderness Location: of the great toe Location: at the MTP joint, toes with normal ROM and other (1st MTP joint erythematous) Psych Mental Status: mental status grossly normal Affect: normal affect Thought process: Normal thought process present Medical Decision Making Medical Decision Making MDM Narrative: Patient is a 29y/o M with pmhx MRSA and polysubstance abuse presenting to the ED with complaint of left great toe pain at MTP joint with redness for the past 2 days. On exam patient is awake, A+Ox3, VS WNL, afebrile, normal neurological exam without focal deficits, physical exam findings as above. Given reported symptoms and physical exam findings, initial differential includes but is not limited to gout flare. Appearance not consistent with cellulitis. Unlikely fracture as patient denies injury. Will treat with course of prednisone and ibuprofen. Return precautions discussed. Patient verbalized understanding of and agreement with plan. Differential Diagnosis Differential Diagnoses: The differential diagnosis associated with the presentation includes as per [facility] Admission/Observation Consideration of admission/observation: Escalation of care including admission/observation considered Patient would have been admitted to the hospital and transferred to appropriate facility had their clinical presentation warranted hospital admission. External Record Review External record reviewed: Inpatient record, Office record and Outpatient record Prescription Management I considered prescription management with: Other Discharge Plan Discharge Clinical Impression: Gout flare Patient Disposition: Home, Self-Care Instructions: Low Purine Diet (ED), Gout (ED) Additional Instructions: Your Diagnosis You were treated for an acute gout flare. Gout is a type of arthritis caused by a buildup of uric acid crystals in your joints, which leads to sudden pain, swelling, and redness. Your Medications You have been prescribed two medications to treat your gout flare: Prednisone?- This is a steroid that reduces inflammation and pain in your joints. Take this medication exactly as prescribed.[1][3]?Your doctor will likely have you take it for 7-10 days with a gradual decrease in dose (called a taper). Do not stop taking prednisone suddenly without talking to your doctor.[3] Ibuprofen?- This is an anti-inflammatory pain reliever that helps reduce joint pain and swelling. Take this medication with food to protect your stomach.[1][3]?Continue taking it for 7-10 days or as directed by your doctor.[3] Important Medication Instructions * Take both medications as prescribed, even if you start feeling better * Do not take more than the recommended dose * If you experience severe stomach pain, black stools, or vomiting, stop the ibuprofen and contact your doctor immediately * If you develop signs of infection (fever, chills) while taking prednisone, contact your doctor right away What to Expect * Your pain and swelling should start to improve within 24-48 hours of starting treatment * Complete resolution of symptoms typically takes 7-10 days * It is normal to have some residual discomfort as the flare resolves Self-Care at Home * Rest the affected joint?- Avoid putting weight or pressure on the painful area * Apply ice?- Place ice wrapped in a towel on the affected joint for 15-20 minutes several times a day to help reduce pain and swelling[1] * Stay hydrated?- Drink plenty of water throughout the day * Elevate the affected joint?when possible to reduce swelling Lifestyle Changes to Prevent Future Flares * Limit alcohol consumption, especially beer * Reduce intake of red meat, seafood, and foods/drinks high in fructose (like soda) * Maintain a healthy weight through diet and exercise * Stay well-hydrated by drinking water throughout the day When to Seek Medical Attention Contact your doctor or seek medical care if you experience: * Worsening pain or swelling despite taking medications * Fever over 100.4?F (38?C) * Severe stomach pain, black or bloody stools * New joint pain in a different location * Symptoms that do not improve after 3-4 days of treatment Follow-Up Care * Schedule a follow-up appointment with your primary care doctor or heading up machine operator within 2-4 weeks * Your doctor may discuss starting a medication to lower your uric acid levels if you have had multiple gout attacks * Blood tests may be needed to check your uric acid level and kidney function Questions? If you have any questions or concerns about your treatment, please contact your doctor's office. Prescriptions: New prednisone 20 mg tablet 40 mg PO DAILY 5 Days Qty: 10 0RF ibuprofen 600 mg tablet 600 mg PO Q6H PRN (Reason: pain) Qty: 20 0RF No Action baclofen 10 mg tablet 10 mg PO TID aripiprazole 5 mg tablet 5 mg PO QAM mirtazapine 7.5 mg tablet 7.5 mg PO BEDTIME nicotine (polacrilex) 4 mg lozenge 4 mg PO Q2H PRN (Reason: Nicotine Cravings) Print Language: Hungarian
[2025-06-13 18:22] VITALS: BP 174/98; PULSE 72; RESP 16; TEMP 36.9; O2SAT 97; BMI 25.8
--- OUTSIDE RECORDS SUMMARY | 2025-06-13 21:09 | XMS_ITS | Clinical Summary ---
Author Organization [facility] Address [address] [place] [address] Care Team Providers Care Incoming Freight Clerk Name Role Phone Pcp, No Primary Care [...] series) 2012 Influenza Vaccine 01/26/2025 COVID-19 Vaccine ( - 2024-2 6 season) 2025 HPV Vaccines (No Doses Required) Completed Pneumococcal Vaccine: Pediat elina (0-5 Years) and At-Risk Patients (6 to 49 Years) Aged Out No longer eligible b ased on patient's age to complete this topic Insurance [facility] Care Teams Incoming Freight Clerk Relationship Specialty Start Date End Date Pcp, No PCP - General General Medicine 07/21/20
--- OUTSIDE RECORDS SUMMARY | 2025-06-13 21:09 | XMS_ITS ---
Author Name [facility] Organization Unknown Care Team Organization Name Specialty Phone Email Start Date End Da te [facility] 06/28/2024 [facility] ([facility]) 2023
--- OUTSIDE RECORDS SUMMARY | 2025-06-13 21:09 | XMS_ITS | Clinical Summary ---
Author Organization [facility] ity Address [address] [place] [address] Care Team Providers Care Central Service Technician Name Role Phone Unavailable Primary Care Provider [...]
== END 2025-06-13 19:12 | disposition home or self-care (01) ==
LOC: HO.ED 18:53
PROVIDERS: Emergency Provider Student in an Organized Health Care Education/Training Program
DX: M10.072 Idiopathic gout, left ankle and foot (principal); R60.0 Localized edema; M79.672 Pain in left foot; Z79.899 Other long term (current) drug therapy
CPT/HCPCS: 99281; 99283

== ENCOUNTER 2025-06-21 02:50 | Emergency (ER) | payer OTHER, SELFPAY ==
[2025-06-21 03:10] VITALS: BP 132/77; PULSE 77; RESP 15; TEMP 37.2; O2SAT 100; BMI 25.1
--- NOTE | 2025-06-21 03:53 | PC.NURSE ---
pt noted to be slouched over in waiting room, this rn approached pt to wake pt up, pt noted to be sleeping with food in mouth. when pt awake pt stated to this rn everytime i try to sleep someone fucking wakes me up , paper cutter operator Essence made aware and pt brought into [facility] chair. Security made aware of pt.
--- NOTE | 2025-06-21 03:56 | ED.GENADULT ---
HPI - General Adult General Chief complaint: General Medical Stated complaint: felt like had a stroke td + wants Methadone Dosage Time Seen by Provider: 06/21/25 03:55 Source: patient Mode of arrival: ambulatory Limitations: no limitations History of Present Illness ED Provider: Dr. Cristina Mascorro HPI narrative: 29-year-old male with a history of housing insecurity and substance use disorder presenting with bilateral arm numbness and foot pain ongoing since this evening while on the bus. States that he was opening up a soda can when he felt like he could not use either 1 of his hands. He denies illicit substance use today. Also admits to bilateral foot pain while walking. Patient is rather belligerent, refusing to answer many questions. Related Data Home Medications ?Medication ?Instructions ?Recorded ?Confirmed aripiprazole 5 mg tablet 5 mg PO QAM 05/22/25 05/22/25 baclofen 10 mg tablet 10 mg PO TID 05/22/25 05/22/25 mirtazapine 7.5 mg tablet 7.5 mg PO BEDTIME 05/22/25 05/22/25 nicotine (polacrilex) 4 mg buccal 4 mg PO Q2H PRN Nicotine Cravings 05/22/25 05/22/25 lozenge Previous Rx's ?Medication ?Instructions ?Recorded ibuprofen 600 mg tablet 600 mg PO Q6H PRN pain #20 tabs 06/13/25 prednisone 20 mg tablet 40 mg (2 x 20 mg) PO DAILY 5 days 06/13/25 #10 tabs Allergies Allergy/AdvReac Type Severity Reaction Status Date / Time ondansetron (From Zofran) Allergy Unknown Verified 06/21/25 03:13 trazodone Allergy Palpitation Verified 06/21/25 03:13 s Review of Systems Review of Systems: Yes Other (Patient is uncooperative) PMFSH Past Medical History Medical History MRSA infection Social History Social History Alcohol intake: never Patient Tobacco Use Status: Current everyday Tobacco user Substance Use Type: Crack/Cocaine and Other Advance Directives: No Advance Directives Information Provided: Yes Physical Exam ED Exam Exam: GENERAL: Unkempt, uncooperative. SKIN: Normal skin color for ethnicity, warm, dry, no rashes noted. HEENT: Normocephalic, atraumatic, no stridor, EOMI. NECK: Full ROM. CHEST: Heart regular rate and rhythm, symmetric chest rise and fall. PULMONARY: No labored breathing. MUSCULOSKELETAL: Normal tone, full range of motion, no deformities, no peripheral edema. NEURO: Alert and oriented x3, no focal neurologic deficits, moves all 4 limbs equally, easily ambulatory with a steady gait, moves both arms and lifts heavy bags without issue. PSYCHIATRIC: Flat affect, fluid speech, poor eye contact and uncooperative. Vital Signs: Vital Signs - 24 hr 06/21/25 03:10 06/21/25 04:06 Temperature 98.9 F 98.9 F Pulse Rate 77 77 Respiratory Rate 15 15 Blood Pressure 132/77 132/77 Pulse Oximetry 100 100 Oxygen Delivery Method Room Air Room Air BMI result Body Mass Index 25.1 Medical Decision Making Medical Decision Making MDM Narrative: Patient presents today with musculoskeletal pain. Differential diagnosis includes frostbite, fracture, soft tissue contusion, ligamentous injury, tendon injury, infection, laceration, among others. Patient is neurovascularly intact upon arrival to the emergency department. Based on physical exam, no further imaging is indicated at this time. Patient became extremely belligerent, states that he wants to leave. I see no indication for further testing in the emergency department. He is ambulatory with clear speech and steady gait. He has capacity to make decisions. Ultimately left without getting paperwork. Differential Diagnosis Differential Diagnoses: The differential diagnosis associated with the presentation includes (as above) External Record Review External record reviewed: Inpatient record Social Determinants Patient?s care significantly limited by Social Determinants of Health including: Inadequate housing and Other Social Determinant of Health Discharge Plan Discharge Clinical Impression: Housing insecurity, Bilateral foot pain Patient Disposition: Home, Self-Care Instructions: Frostbite (ED) Additional Instructions: Try to stay clean and dry. If you need to come back to the emergency department for any medical or psychologic complaint, you may do so at any time. If you are looking to get help with your addictions, there is help available. Prescriptions: No Action baclofen 10 mg tablet 10 mg PO TID aripiprazole 5 mg tablet 5 mg PO QAM mirtazapine 7.5 mg tablet 7.5 mg PO BEDTIME nicotine (polacrilex) 4 mg lozenge 4 mg PO Q2H PRN (Reason: Nicotine Cravings) prednisone 20 mg tablet 40 mg PO DAILY 5 Days Qty: 10 0RF ibuprofen 600 mg tablet 600 mg PO Q6H PRN (Reason: pain) Qty: 20 0RF Interventions: ED Discharge Assessment Last Done: 06/21/25 04:06 Print Language: Lao
--- NOTE | 2025-06-21 03:59 | PC.NURSE ---
pt place in [facility], Pt falling forward in recliner chair, attempted to assess pt to make sure he was okay, pt starting yelling you Keep fucking waking me up Attempted to educated him that we are doing assessment. Notified provider.
--- OUTSIDE RECORDS SUMMARY | 2025-06-21 03:59 | XMS_ITS | Clinical Summary ---
Author Organization [facility] ity Address [address] [place] [address] Care Team Providers Care Recruiter Name Role Phone Unavailable Primary Care Provider [...]
--- OUTSIDE RECORDS SUMMARY | 2025-06-21 03:59 | XMS_ITS | Clinical Summary ---
Author Organization [facility] Address [address] [place] [address] Care Team Providers Care Intellectual Property Legal Assistant Name Role Phone Michele Murphy NP Unavailable Michele Murphy NP Primary Care Provider [phone] Social History Tobacco Use Types Packs/Day Years Used Date Smoking Tobacco: Never Assessed Humiliation, Afraid, Rape, and Kick questionnair e Answer Date Recorded Within the last year, have y ou been afraid of your partner or ex-partner? Patient declined 02/20/2025 Emotionally Abused Not on file 02/20/2025 Physically Abused Not on file 02/20/2025 Sexually Abused Not on file 02/20/2025 Overall Financial Resource Strain (CARDIA) Answe r Date Recorded How hard is it for you to pa y for the very basics like food, housing, medical care, and heating? Patient declined 02/20/2025 Hunger Vital Sign Answer Date Recorded Within the past 12 months, y ou worried that your food would run out before you got the money to buy more. Patient declined Ran Out of Food in the Last Year Not on file 02/20/2025 PRAPARE - Transportation Answer Date Re corded In the past 12 months, has l ack of transportation kept you from medical appointments or from getting medications? Patient declined 02/20/2025 In the past 12 months, has l ack of transportation kept you from meetings, work, or from getting things needed for daily living? Patient declined 02/20/2025 Housing Stability Vital Sign Answer Kody e Recorded In the last 12 months, was t here a time when you were not able to pay the mortgage or rent on time? Patient declined 02/21/20 Number of Times Moved in the Last Year Not on fi le 02/20/2025 At any time in the past 12 m [facility], were you homeless or living in a jail (including now)? Patient declined 02/20/2025 [facility] Utilities Answer Date Recorded In the past 12 months has th e electric, gas, oil, or water company threatened to shut off services in your home? Patient declined 02/20/2025 Food Insecurity Answer Date Recorded Within the past 12 months, y ou worried that your food would run out before you got the money to buy more. Patient declined Ran Out of Food in the Last Year Not on file 02/20/2025 Intimate Partner Violence Answer Date R ecorded Emotionally Abused Not on file 02/20/2025 Within the last year, have y ou been afraid of your partner or ex-partner? Patient declined 02/20/2025 Physically Abused Not on file 02/20/2025 Sexually Abused Not on file 02/20/2025 Housing Stability Answer Date Recorded Unstable Housing in the Last Year Not on file 02/20/2025 In the last 12 months, was t here a time when you were not able to pay the mortgage or rent on time? Patient declined 02/21/20 Number of Places Lived in the Last Year Not on f ile 02/20/2025 Sex and Gender Information Value Date Recorded Sex Assigned at Male 02/20/2025 2:13 PM EDT Legal Sex Male 1:58 PM EDT Gender Identity Male 02/20/2025 2:13 PM EDT Sexual Orientation Not on file Last Filed Vital Signs Vital Sign Reading Time Taken Comments Blood Pressure 132/76 02/20/2025 2:03 PM EDT Pulse 65 02/20/2025 2:03 PM EDT Temperature 37.1 C (98.7 F) 02/20/2025 2:03 PM EDT Respiratory Rate 18 02/20/2025 2:03 PM EDT Oxygen Saturation 98% 02/20/2025 2:03 PM EDT Inhaled Oxygen Concentration - - Weight - - Height - - Body Mass Index - - Plan of Treatment Health Maintenance Due Date Last Done Comments Depression Screening 2005 Hepatitis C Screening 12/18/2011 COVID-19 Vaccine (2 - 2024-2 6 season) 2025 06/08/2022 Influenza Vaccine (#1) 2025 05/30/2019 Blood Pressure 02/20/2029 02/20/2025 DTaP,Tdap,and Td Vaccines (2 - Td or Tdap) 10/11/2029 10/12/2019 Meningococcal B Vaccines Aged Out No longer eligible based on patient's age to complete this topic Meningococcal Vaccines Aged Out No lo nger eligible based on patient's age to complete this topic Pneumococcal Vaccine Aged Out No long er eligible based on patient's age to complete this topic Insurance [facility] Care Teams Intellectual Property Legal Assistant Relationship Specialty Start Date End Date Michele Murphy NP [address] [place] [address]. [address] [address] PCP - Insurance Assigned PCP 02/20/25 Michele Murphy NP [address] [place] [address]. [address] [address] PCP - General Nurse Practitioner 02/20/25
--- OUTSIDE RECORDS SUMMARY | 2025-06-21 03:59 | XMS_ITS | Clinical Summary ---
Author Organization [facility] Address [address] [place] [address] Care Team Providers Care Cell Biology Scientist Name Role Phone Pcp, No Primary Care [...] patient's age to complete this topic Insurance [facility] Care Teams Cell Biology Scientist Relationship Specialty Start Date End Date Pcp, No PCP - General General Medicine 07/21/20
[2025-06-21 04:06] VITALS: BP 132/77; PULSE 77; RESP 15; TEMP 37.2; O2SAT 100
== END 2025-06-21 04:11 | disposition home or self-care (01) ==
PROVIDERS: Emergency Provider Emergency Medicine
DX: R20.0 Anesthesia of skin (principal); M79.605 Pain in left leg; M79.604 Pain in right leg; Z79.899 Other long term (current) drug therapy; F17.210 Nicotine dependence, cigarettes, uncomplicated
CPT/HCPCS: 99282

== ENCOUNTER 2025-06-24 22:52 | Emergency (ER) | payer OTHER, SELFPAY ==
[2025-06-24 22:57] VITALS: BP 110/58; PULSE 53; RESP 16; TEMP 36.4; O2SAT 98; BMI 25.8
[2025-06-24 23:41] LABS: MANUAL DIFF FLAG NO
[2025-06-24 23:42] LABS: Hematocrit 36.1 % (42.0-52.0); Hemoglobin 12.2 g/dl (14.0-18.0); Imm Gran Abs Auto 0.04 X10*3/uL (0.00-0.03); Imm Gran Pct Auto 0.6 % (0.0-0.4); Lymphocytes Absolute Auto 1.8 X10*3/uL (1.2-4.9); Mean Corpuscular HGB Conc 33.8 g/dl (31.0-36.0); Mean Corpuscular Hemoglobin 28.2 pg (27.0-33.0); Mean Corpuscular Volume 83.6 fL (80.0-98.0); NRBC Abs Auto 0.000 X10*3/uL (0.0-0.012); NRBC Pct Auto 0.0 /100WBC (0.0-0.2); Platelet Count 143 X10*3/uL (160-400); Red Blood Count 4.32 X10*6/uL (4.60-5.80); White Blood Count 7.2 X10*3/uL (4.8-10.8)
[2025-06-24 23:55] LABS: Alanine Aminotransferase 50 U/L (0-40); Albumin Level 4.1 g/dL (3.5-5.0); Alkaline Phosphatase 82 U/L (39-117); Anion Gap 12 (12-20); Aspartate Amino Transferase 39 U/L (5-37); Blood Urea Nitrogen 12 mg/dL (9-16); Calcium 8.8 mg/dL (8.4-10.2); Carbon Dioxide 26 mmol/L (22-29); Chloride 104 mmol/L (96-108); Creatinine Clr Calc Pharmacy 115.1; Estimated Glomerular Filt Rate > 60; Potassium 4.4 mmol/L (3.3-5.1); Sodium 138 mmol/L (135-145); Total Protein 7.0 g/dL (6.5-8.0)
--- OUTSIDE RECORDS SUMMARY | 2025-06-25 02:21 | XMS_ITS | Clinical Summary ---
Author Organization [facility] Address [address] [place] [address] Care Team Providers Care Loading Shovel Oiler Name Role Phone Pcp, No Primary Care [...] patient's age to complete this topic Insurance [facility] Care Teams Loading Shovel Oiler Relationship Specialty Start Date End Date Pcp, No PCP - General General Medicine 07/21/20
--- OUTSIDE RECORDS SUMMARY | 2025-06-25 02:21 | XMS_ITS | Clinical Summary ---
Author Organization [facility] ity Address [address] [place] [address] Care Team Providers Care Facility Rehab Director Name Role Phone Unavailable Primary Care Provider [...]
--- OUTSIDE RECORDS SUMMARY | 2025-06-25 02:21 | XMS_ITS | Clinical Summary ---
Author Organization [facility] Address [address] [place] [address] Care Team Providers Care Manifest/Order Organizer Print Orders Name Role Phone Michele Murphy NP Unavailable Michele Murphy NP Primary Care Provider [phone] Social History Tobacco Use Types Packs/Day Years [...] any time in the past 12 m [facility], were you homeless or living in a [facility] (including now)? Patient declined 02/20/2025 [facility] Utilities Answer Date Recorded In the past [...] patient's age to complete this topic Insurance [facility] [employer] [facility] Care Teams Manifest/Order Organizer Print Orders Relationship Specialty Start Date End Date Michele Murphy NP [address] [place] [address]. [address] [address] PCP - Insurance Assigned PCP 02/20/25 Michele Murphy NP [address] [place] [address]. [address] [address] PCP - General Nurse Practitioner 02/20/25
== END 2025-06-25 02:35 | disposition left against medical advice (07) ==
PROVIDERS: Emergency Provider Emergency Medicine
DX: M79.671 Pain in right foot (principal)
CPT/HCPCS: 36415; 80053; 85025; 99281